=== PATIENT | male | born 1935 | race Caucasian/White ===

== ENCOUNTER 2016-08-14 14:28 | Day surgery (SDC) | payer MEDICARE, OTHER ==
--- NOTE | 2016-08-18 11:51 | Operative Note ---
DATE OF SURGERY: 08/14/2016 PREOPERATIVE DIAGNOSES: 1. Urinary urge incontinence. 2. Nocturia. POSTOPERATIVE DIAGNOSES: 1. Urge urinary incontinence. 2. Nocturia. 3. Enlarge prostate with symptoms. PROCEDURE: Cystoscopy. Surgeon: Yousif Malik M.D. Anesthesia: Local. PROCEDURE: Preop informed consent was obtained. Antibiotics were given. The patient was brought to the [facility] Procedure Room, placed supine with the genitalia prepped and draped sterilely. Flexible cystoscopy was performed. The urethra appeared unremarkable. The prostatic urethra was entered, revealed complete visual obstruction with lateral lobes as well as a [id number] size median lobe which was not intravesical. Advancing into the bladder, the bladder was inspected systematically. There was [id number] trabeculation noted. The ureteral orifices had normal appearance and positioning but otherwise the bladder appeared unremarkable without any evidence of mass, calculus or urothelial abnormality. The scope was also retroflexed and again there was no evidence of an intravesical protrusion of the prostate and the scope was then carefully withdrawn. The procedure was terminated and patient tolerated it quite well. PLAN: Since the patient has not responded to BPH medical therapy already, we discussed surgical options of photovaporization of the prostate versus transurethral resection of the prostate. He would like to move ahead with the green light photovaporization and this will be scheduled to be done as an outpatient at [facility] sometime in the near future. All questions about the procedure were answered including risks, benefits and potential complications including bleeding, incontinence, retention and iatrogenic injury. He understands all the above and wishes to proceed. CC: Ira Hollis M.D. EUN
== END 2016-08-14 15:00 | disposition home or self-care (01) ==
LOC: HOP 14:28
PROVIDERS: ATTEND Urology
DX: N40.0 Benign prostatic hyperplasia without lower urinary tract symptoms (principal)

== ENCOUNTER 2017-08-14 04:29 | Emergency (ER) | payer MEDICARE, OTHER ==
[2017-08-14 05:06] LABS: EOS % 4.8 % (0-6); GRAN % 65.2 % (47-80); HEMATOCRIT 44.5 % (42.0-52.0); HEMOGLOBIN 14.9 gm/dl (14.0-18.0); LYMPH % 21.1 % (16-45); MEAN CORPUSCULAR HEMOGLOBIN 29.8 pg (27-33); MEAN CORPUSCULAR HGB CONC 33.5 g/dl (32-36); MEAN PLATELET VOLUME 10.9 fl (7.4-10.4); MONO % 7.9 % (0-9); PLATELET COUNT 150 K/uL (130-400); WHITE BLOOD COUNT W/O DIFF 5.8 K/uL (4.2-12.2)
[2017-08-14 05:13] LABS: BLOOD UREA NITROGEN 16 mg/dL (8-23); EST GLOMERULAR FILTRATION RATE > 60 mL/min
[2017-08-14 05:15] LABS: GLUCOSE,RANDOM 95 mg/dL (74-109)
--- NOTE | 2017-08-14 06:00 | Emergency Department Record ---
History of Present Illness - General Chief Complaint: Fall Injury Stated Complaint: FALL Time Seen by Provider: 08/14/17 04:36 Source: Patient Mode of Arrival: Ambulatory Limitations: No limitations - History of Present Illness Initial Comments: pt became dizzy in bathroom and fell against wall. he did not injure himself. he conts to be dizzy. Complaint: Fall Onset/Timin -: Hour(s) Fall From: Standing When Fall Occurred: 1 hour [employer]ARB[employer] Fall Witnessed: No Place Fall Occurred: Home Loss of Consciousness: None Prolonged Down Time?: Unclear Symptoms Prior to Fall: Dizziness Associated Symptoms: Lightheaded - Hughes Coma Scale Eye Response: (4) Open spontaneously Motor Response: (6) Obeys commands Verbal Response: (5) Oriented Hughes Total: 15 - Related Data Home Medications Medication Instructions Recorded Confirmed Last Taken Apixaban [Eliquis] 5 mg PO BID 08/14/17 08/14/17 Unknown Terazosin HCl 2 mg PO BID 08/14/17 08/14/17 Unknown Allergies Allergy/AdvReac Type Severity Reaction Status Date / Time Penicillins Allergy Unknown RASH Verified 08/14/17 04:33 Travel Screening - Travel/Exposure Within Last 30 Days Have you traveled within the last 30 days?: No - Travel Symptoms Symptom Screening: None Review of Systems Reviewed: No additional complaints except as noted below Constitutional: Reports: As per HPI. Denies: Chills, Fever, Malaise, Night sweats, Weakness, Weight change Eyes: Reports: As per HPI. Denies: Eye discharge, Eye pain, Photophobia, Vision change ENT: Reports: As per HPI. Denies: Congestion, Dental pain, Ear pain, Epistaxis , Hearing loss, Throat pain Respiratory: Reports: As per HPI. Denies: Cough, Dyspnea, Hemoptysis, Stridor, Wheezes Cardiovascular: Reports: As per HPI, Arrhythmia. Denies: Chest pain, Dyspnea on exertion, Edema, Murmurs, Orthopnea, Palpitations, Paroxysmal nocturnal dyspnea, Rheumatic Fever, Syncope Endocrine: Reports: As per HPI. Denies: Fatigue, Heat or cold intolerance, Polydipsia, Polyuria Gastrointestinal: Reports: As per HPI. Denies: Abdominal pain, Constipation, Diarrhea, Hematemesis, Hematochezia, Melena, Nausea, Vomiting Genitourinary: Reports: As per HPI. Denies: Dysuria, Frequency, Hematuria, Incontinence, Retention, Testicular pain, Testicular mass, Urgency Musculoskeletal: Reports: As per HPI. Denies: Arthralgia, Back pain, Gout, Joint swelling, Myalgia, Neck pain Skin: Reports: As per HPI. Denies: Bruising, Change in color, Change in hair/ nails, Lesions, Pruritus, Rash Neurological: Reports: As per HPI. Denies: Abnormal gait, Confusion, Headache, Numbness, Paresthesias, Seizure, Tingling, Tremors, Vertigo, Weakness Psychiatric: Reports: As per HPI. Denies: Anxiety, Auditory hallucinations, Depression, Homicidal thoughts, Suicidal thoughts, Visual hallucinations Hematological/Lymphatic: Reports: As per HPI. Denies: Anemia, Blood Clots, Easy bleeding, Easy bruising, Swollen glands Past Medical History - SOCIAL HISTORY Smoking Status: Never smoker - RESPIRATORY Hx Respiratory Disorders: Yes Hx Asthma: Yes (many yrs ago) Hx Sleep Apnea: Yes Hx of CPAP: Yes - CARDIOVASCULAR Hx Cardio Disorders: Yes Hx Abnormal EKG: Yes Hx Cardiac Cath: Yes (04/29/15 rt groin) Hx CHF: Yes (angina) Hx Heart Attack: Yes Hx Hypertension: Yes Hx Irregular Heartbeat: Yes (A-fib) Comment:: high cholesterol - NEURO Hx Neuro Disorders: Yes Hx Seizures: No Hx TIA: Yes - GI Hx GI Disorders: Yes Comment:: diarrhea - Hx Genitourinary Disorders: Yes Hx Kidney Stones: Yes Hx Prostate Problems: Yes - ENDOCRINE Hx Endocrine Disorders: No Hx Diabetes: No - MUSCULOSKELETAL Hx Musculoskeletal Disorders: Yes Hx Arthritis: Yes (osteoarthritis rt knee) - PSYCH Hx Psych Problems: No - HEMATOLOGY/ONCOLOGY Hx Hematology/Oncology Disorders: No Family Medical History Any Significant Family History?: Yes Hx Cancer: Father Physical Exam - General General Appearance: Alert, Oriented x3, Cooperative, Mild distress - Head Head exam: Normal inspection - Eye Eye exam: Normal appearance, PERRL, EOMI Pupils: Normal accommodation - ENT ENT exam: Normal exam, Mucous membranes moist, Normal external ear exam, Normal orophraynx, TM's normal bilaterally Ear exam: Normal external inspection. negative: External canal tenderness Nasal Exam: Normal inspection. negative: Discharge, Sinus tenderness Mouth exam: Normal external inspection, Tongue normal Teeth exam: Normal inspection. negative: Dental caries Throat exam: Normal inspection. negative: Tonsillar erythema, Tonsillar exudate - Neck Neck exam: Normal inspection, Full ROM. negative: Tenderness - Respiratory Respiratory exam: Normal lung sounds bilaterally. negative: Respiratory distress - Cardiovascular Cardiovascular Exam: Normal heart sounds, Bradycardia, Irregular rhythm - GI/Abdominal GI/Abdominal exam: Soft, Normal bowel sounds. negative: Tenderness - Rectal Rectal exam: Deferred - exam: Deferred - Extremities Extremities exam: Normal inspection, Full ROM, Normal capillary refill. negative: Tenderness - Back Back exam: Reports: Normal inspection, Full ROM. Denies: Muscle spasm, Rash noted, Tenderness - Neurological Neurological exam: Alert, CN II-XII intact, Normal gait, Oriented X3 - Psychiatric Psychiatric exam: Normal affect, Normal mood - Skin Skin exam: Dry, Intact, Normal color, Warm Course Vital Signs 08/14/17 08/14/17 04:35 05:28 Temperature 97.6 F Pulse Rate [ 64 [employer] ] Pulse Rate [ 56 L Pulse Ox Probe] Respiratory 16 14 Rate Blood Pressure 136/93 [Left Arm] Blood Pressure 146/81 [Right Arm] Pulse Ox 97 95 - Reevaluation(s) Reevaluation #1: 08/14/17 06:00 pt feel better Medical Decision Making - Lab Data Result diagrams: 08/14/17 04:55 08/14/17 04:55 Lab Results 08/14/17 08/14/17 Range/Units 04:55 04:55 WBC 5.8 (4.2-12.2) K/uL RBC 5.00 (4.40-5.70) M/uL Hgb 14.9 (14.0-18.0) gm/dl Hct 44.5 (42.0-52.0) % MCV 89.0 (81-97) fl MCH 29.8 (27-33) pg MCHC 33.5 (32-36) g/dl RDW 15.0 H (11.5-14.5) % Plt Count 150 (130-400) K/uL MPV 10.9 H (7.4-10.4) fl Gran % 65.2 (47-80) % Lymphocytes % 21.1 (16-45) % Monocytes % 7.9 (0-9) % Eosinophils % 4.8 (0-6) % Basophils % 1.0 (0-6) % Sodium 145 (136-145) mmol/L Potassium 3.7 (3.4-4.5) mmol/L Chloride 102 (98-107) mmol/L Carbon Dioxide 28.0 (22-29) mmol/L Anion Gap 15.0 (7-16) BUN 16 (8-23) mg/dL Creatinine 1.0 (0.7-1.2) mg/dL Estimated GFR > 60 mL/min Random Glucose 95 (74-109) mg/dL Calcium 9.1 (8.8-10.2) mg/dL Disposition Disposition: Discharge Clinical Impression: Dizziness Disposition: Home, Self-Care Condition: (1) Good Instructions: Fall Prevention for Older Adults (ED), Dizziness (ED) Additional Instructions: follow up with family doctor. return sooner if worse. Forms: Patient Portal Access Quality - Quality Measures Quality Measures: N/A - Blood Pressure Screening Does Patient Have Any of the Following: No Blood Pressure Classification: Pre-Hypertensive BP Reading Systolic Measurement: 146 Diastolic Measurement: 81 Screening for High Blood Pressure: < Pre-Hypertensive BP, F/U Documented > [ G8950] Pre-Hypertensive Follow-up Interventions: Follow-up with rescreen every year.
[2017-08-14 06:04] LABS: URINE APPEARANCE CLEAR; URINE BILIRUBIN NEGATIVE (NEGATIVE); URINE BLOOD NEGATIVE (NEGATIVE); URINE COLOR YELLOW; URINE GLUCOSE (UA) NEGATIVE (NEGATIVE); URINE KETONE NEGATIVE (NEGATIVE); URINE LEUKOCYTE ESTERASE NEGATIVE (NEGATIVE); URINE NITRITE NEGATIVE (NEGATIVE); URINE PROTEIN NEGATIVE (NEGATIVE); URINE UROBILINOGEN 0.2 E.U./dL (0.20 - 1.00)
[2017-08-14] MEDS: MECLIZINE 25 MG TABLET PO ONE (06:12)
--- NOTE | 2017-08-14 10:33 | CT SCAN REPORT ---
EXAM: CT OF THE BRAIN WITHOUT CONTRAST HISTORY: INJURY. TECHNIQUE: Sequential axial images were obtained from the foramen magnum to the vertex without contrast administration. FINDINGS: The brain volume is normal for the patient's reported age. No large territorial infarct, hemorrhage, mass effect, or midline shift. No extraaxial fluid collection. There is periventricular small vessel ischemia. No extraaxial fluid collection. The orbits, paranasal sinuses, and mastoid air cells are normal. No depressed skull fracture. 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 NO ACUTE INTRACRANIAL ABNORMALITY. JOB NUMBER: [id number] [facility]
== END 2017-08-14 06:20 | disposition home or self-care (01) ==
LOC: ER 04:29
DX: R42 Dizziness and giddiness (principal); I48.91 Unspecified atrial fibrillation; I10 Essential (primary) hypertension; I25.2 Old myocardial infarction; W18.39XA Other fall on same level, initial encounter; Y92.002 Bathroom of unspecified non-institutional (private) residence as the place of occurrence of the external cause
CPT/HCPCS: 70450; 80048; 81003; 85025; 93005; 93010; 99284

== ENCOUNTER 2018-07-12 15:06 | Emergency (ER) | payer MEDICARE, BC ==
--- NOTE | 2018-07-12 15:40 | Emergency Department Record ---
History of Present Illness - General Chief Complaint: Dizziness Stated Complaint: MOUTH DROOPING Time Seen by Provider: 07/12/18 15:29 Source: Patient Mode of Arrival: walker Limitations: No limitations - History of Present Illness Initial Comments: 82 yo male presents last known normal at 10pm on 07/11/18. The patient woke up this morning with a noticeable change in facial expression, increased drooling, and increased unsteadiness of walking with his walker. His states he has had TIA's in the past. The last episode was about 10 years ago. No vision changes, hearing changes, headache. No chest pain or shortness of breath. He has a history of atrial fibrillation on [place] FALK Complaint: Difficulty walking, Other (Slurred speech, drooling, trouble walking) Onset/Timin -: Hour(s) Timing: Awoke with symptoms Description: Difficulty walking History of Same: Yes Severity: Mild Associated Symptoms: Ataxia - Kenna Coma Scale Eye Response: (4) Open spontaneously Motor Response: (6) Obeys commands Verbal Response: (4) Confused conversation Kenna Total: 14 - Symptoms of Stroke Onset of Symptoms Date: 07/12/18 Onset of Symptoms Time: 10:00 Symptom Onset Unknown: Yes - Related Data Allergies Allergy/AdvReac Type Severity Reaction Status Date / Time Penicillins Allergy Unknown RASH Verified 07/12/18 15:35 Travel Screening - Travel/Exposure Within Last 30 Days Have you traveled within the last 30 days?: No - Travel/Exposure Within Last Year Have you traveled outside the [place] in the last year?: No - Additonal Travel Details Have you been exposed to anyone with a communicable illness?: No - Travel Symptoms Symptom Screening: None Review of Systems Constitutional: Reports: Weakness. Denies: Chills, Fever, Malaise Eyes: Denies: Eye discharge, Eye pain, Photophobia, Vision change ENT: Reports: Other (drooling). Denies: Congestion, Throat pain Respiratory: Denies: Cough, Dyspnea Cardiovascular: Denies: Chest pain, Palpitations, Syncope Endocrine: Denies: Fatigue, Polydipsia, Polyuria Gastrointestinal: Denies: Abdominal pain, Diarrhea, Nausea, Vomiting Genitourinary: Denies: Dysuria, Frequency, Hematuria Musculoskeletal: Reports: Arthralgia ("bad knees"). Denies: Back pain Skin: Denies: Bruising, Change in color, Rash Neurological: Reports: Abnormal gait. Denies: Confusion, Headache, Numbness, Paresthesias, Seizure, Tingling, Tremors, Vertigo Psychiatric: Denies: Anxiety Hematological/Lymphatic: Denies: Blood Clots, Easy bleeding, Easy bruising Past Medical History - SOCIAL HISTORY Smoking Status: Never smoker Alcohol Use: None Drug Use: None - RESPIRATORY Hx Respiratory Disorders: Yes Hx Asthma: Yes (many yrs ago) Hx Sleep Apnea: Yes Hx of CPAP: Yes - CARDIOVASCULAR Hx Cardio Disorders: Yes Hx Abnormal EKG: Yes Hx Cardiac Cath: Yes (04/29/15 rt groin) Hx CHF: Yes (angina) Hx Heart Attack: Yes Hx Hypertension: Yes Hx Irregular Heartbeat: Yes (A-fib) Comment:: high cholesterol - NEURO Hx Neuro Disorders: Yes Hx Seizures: No Hx TIA: Yes (2-3) - GI Hx GI Disorders: Yes Comment:: diarrhea - Hx Genitourinary Disorders: Yes Hx Kidney Stones: Yes Hx Prostate Problems: Yes - ENDOCRINE Hx Endocrine Disorders: No Hx Diabetes: No - MUSCULOSKELETAL Hx Musculoskeletal Disorders: Yes Hx Arthritis: Yes (osteoarthritis rt knee) - PSYCH Hx Psych Problems: No - HEMATOLOGY/ONCOLOGY Hx Hematology/Oncology Disorders: No Family Medical History Any Significant Family History?: Yes Hx Cancer: Father Physical Exam - General General Appearance: Alert, Oriented x3, Cooperative, No acute distress Limitations: No limitations - Head Head exam: Atraumatic, Normocephalic, Normal inspection Head exam detail: negative: Abrasion, Contusion, Hematoma, Laceration - Eye Eye exam: Normal appearance, PERRL, EOMI. negative: Conjunctival injection, Nystagmus, Periorbital swelling, Scleral icterus Pupils: Normal accommodation. negative: Irregular - ENT ENT exam: Normal exam, Mucous membranes moist Ear exam: Normal external inspection Nasal Exam: Normal inspection Mouth exam: Normal external inspection - Neck Neck exam: Normal inspection. negative: Tenderness - Respiratory Respiratory exam: Normal lung sounds bilaterally. negative: Respiratory distress, Rhonchi, Stridor, Wheezes - Cardiovascular Cardiovascular Exam: Regular rate, Normal heart sounds. negative: Diastolic murmur, Systolic murmur Peripheral Pulses: 2+: Radial (R), Radial (L) - GI/Abdominal GI/Abdominal exam: Soft. negative: Tenderness - Rectal Rectal exam: Deferred - exam: Deferred - Extremities Extremities exam: Normal inspection. negative: Pedal edema, Tenderness - Back Back exam: Reports: Full ROM - Neurological Neurological exam: Alert, Motor sensory deficit, Oriented X3, Other (Right smile asymmetry, no forehead involvement, No PND, No lower leg drift, slow speech with mild dysarthria). negative: Altered, CN II-XII intact, Normal gait - Psychiatric Psychiatric exam: Normal affect, Normal mood. negative: Agitated, Anxious - Skin Skin exam: Dry, Intact, Normal color, Warm Stroke Assessment - NIH Stroke Scale 1a. Level of Consciousness: (0) Alert 1b. LOC Questions: (0) Answers Correctly 1c. LOC Commands: (0) Performs Tasks Correctly 2. Best Gaze: (0) Normal 3. Visual: (0) No Visual Loss 4. Facial Palsy: (1) Minor Paralysis 5a. Motor Arm Left: (0) No Drift 5b. Motor Arm Right: (0) No Drift 6a. Motor Leg Left: (0) No Drift 6b. Motor Leg Right: (0) No Drift 7. Limb Ataxia: (0) Absent 8. Sensory: (0) Normal 9. Best Language: (0) No Aphasia 10. Dysarthria: (1) Mild/Moderate Dysarthria 11. Extinction/Inattention: (0) No Abnormality NIH Stoke Scale Total: 2 Course Vital Signs 07/12/18 15:26 Temperature 97.6 F Pulse Rate 62 Respiratory 18 Rate Pulse Ox 99 - Reevaluation(s) Reevaluation #1: NIH 2 with facial asymmetry and mild dysarthria 07/12/18 15:49 07/12/18 15:50 The patient is 17 hours since last seen normal 07/12/18 16:06 HCT reviewed. 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 EKG #1: 15:49 Rate: 64 Rhythm: Atrial Fibrillation [place]: Normal Intervals: Qtc 485 ST segments: No acute process Prior: Atrial fibrillation 08/14/17 07/12/18 16:17 The case was discussed with Dr Buttulic She will accept the patient to [facility] for work up for possible stroke Medical Decision Making - Lab Data Result diagrams: 07/12/18 15:41 07/12/18 15:41 Disposition Disposition: Transfer Clinical Impression: Stroke Disposition: Acute Care Hospital Transfer Transfer To: [facility] Reason For Transfer: Stroke Accepting Physician: Tana Time Discussed w/Accepting Physician: 16:17 Condition: (1) Good Forms: Patient Portal Access Time of Disposition: 16:17 Quality - Quality Measures Quality Measures: N/A - Blood Pressure Screening Does Patient Have Any of the Following: Active Dx of HTN Blood Pressure Classification: Pre-Hypertensive BP Reading Systolic Measurement: 136 Diastolic Measurement: 69 Screening for High Blood Pressure: Patient Exclusion, Hx of HTN [G9744]
[2018-07-12 15:44] LABS: BASO % 0.5 % (0-6); EOS % 4.7 % (0-6); GRAN % 61.3 % (47-80); HEMATOCRIT 44.1 % (42.0-52.0); HEMOGLOBIN 14.9 gm/dl (14.0-18.0); LYMPH % 24.2 % (16-45); MEAN CORPUSCULAR HEMOGLOBIN 30.4 pg (27-33); MEAN CORPUSCULAR HGB CONC 33.8 g/dl (32-36); MONO % 9.3 % (0-9); PLATELET COUNT 162 K/uL (130-400); WHITE BLOOD COUNT W/O DIFF 5.5 K/uL (4.2-12.2)
[2018-07-12 15:55] LABS: INR 1.1; PARTIAL THROMBOPLASTIN TIME 31.1 SECONDS (24.5-39.1); PROTHROMBIN TIME (PATIENT) 11.4 SECONDS (9.5-12.1)
[2018-07-12 15:57] LABS: BLOOD UREA NITROGEN 13 mg/dL (8-23); EST GLOMERULAR FILTRATION RATE > 60 mL/min
[2018-07-12 15:58] LABS: TOTAL PROTEIN 7.5 g/dL (6.6-8.7)
[2018-07-12 16:00] LABS: GLUCOSE,RANDOM 105 mg/dL (74-109)
[2018-07-12 16:03] LABS: ALB/GLOB RATIO 1.2 (1.1-1.8); ALBUMIN 4.1 g/dL (4.0-5.0); ALKALINE PHOSPHATASE 71 U/L (40-129); ALT/SGPT 22 U/L (<41); AST/SGOT 20 U/L (10.0-50.0)
[2018-07-12 18:08] LABS: URINE APPEARANCE CLEAR; URINE BILIRUBIN NEGATIVE (NEGATIVE); URINE BLOOD NEGATIVE (NEGATIVE); URINE COLOR YELLOW; URINE GLUCOSE (UA) NEGATIVE (NEGATIVE); URINE KETONE NEGATIVE (NEGATIVE); URINE LEUKOCYTE ESTERASE NEGATIVE (NEGATIVE); URINE NITRITE NEGATIVE (NEGATIVE); URINE PROTEIN NEGATIVE (NEGATIVE)
== END 2018-07-12 19:20 | disposition short-term general hospital (02) ==
LOC: ER 15:06
DX: I63.9 Cerebral infarction, unspecified (principal); R47.1 Dysarthria and anarthria; R26.2 Difficulty in walking, not elsewhere classified; R29.702 NIHSS score 2; I48.91 Unspecified atrial fibrillation; I10 Essential (primary) hypertension; I25.2 Old myocardial infarction; I50.9 Heart failure, unspecified; Z86.73 Personal history of transient ischemic attack (TIA), and cerebral infarction without residual deficits; Z79.01 Long term (current) use of anticoagulants
CPT/HCPCS: 70450; 80053; 81003; 84484; 85025; 85610; 85730; 93005; 93010; 99285

== ENCOUNTER 2018-07-15 13:45 | Inpatient (IN) | payer MEDICARE, BC ==
--- NOTE | 2018-07-15 15:38 | Rehab Evaluation ---
Patient Information - Patient Information Diagnosis: Deconditioning R CVA Ordered Treatment: PT Evaluate and Treat Status: Initial Evaluation Past Medical/Surgical Hx: PAST MEDICAL/SURGICAL HISTORY Past Surgical History cardiac stent elbow; R knee replacement; Prostate surgery PMH - Respiratory Hx Respiratory Disorders Yes Hx Asthma Yes: many yrs ago Hx Sleep Apnea Yes Hx of CPAP Yes PMH - Cardiovascular Hx Cardiovascular Disorders Yes Hx Abnormal EKG Yes Hx Cardiac Catheterization Yes: 04/29/15 rt groin Hx Congestive Heart Failure Yes: angina Hx Heart Attack Yes Hx Hypertension Yes Hx Irregular Heartbeat Yes: A-fib Hx Coronary Artery Disease Yes Hx Coronary Stent Yes: 2012 Hx Transient Ischemic Attacks Yes: 2-3 (TIA) Comment: high cholesterol PMH - Neuro Hx Neurological Disorders Yes Hx Cerebrovascular Accident Yes: 07/12/2018 Hx Seizures No Hx Transient Ischemic Attacks Yes: 2-3 (TIA) PMH - GI Hx Gastrointestinal Disorders Yes Comment: diarrhea PMH - Hx Genitourinary Disorders Yes Hx Kidney Stones Yes Hx Prostate Problems Yes PMH - Endocrine Hx Endocrine Disorders No Hx Diabetes No PMH - Musculoskeletal Hx Musculoskeletal Disorders Yes Hx Arthritis Yes: osteoarthritis rt knee PMH - Psych Hx Psychiatric Problems No PMH - Hematology/Oncology Hx Hematology/Oncology No Disorders Premorbid Status: Detail (Patient was ambulatory without device prior to CVA. Patient was completing yard work including mowing with a riding lawnmower and assisting with washing dishes.) Social History: Detail (The patient lives with spouse in a mobile home with 3 steps and one railing on the right side going up at enterance from the garage. The bathroom is equipped with a shower stall and elevated toilet. No grab bars are present in bathroom. 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 The patient states he has had L lateral knee pain since his TKA 2 years ago.) Objective Data - Mental Status Patient Orientation: Oriented x3 (The patient was able to follow simple commands but at times required visual and tactile cues to complete. The patient was able to verbalize history but did have difficulty with word finding. Facial drooping was present on the R.) - ROM Within normal limits (The patient's LE AROM is WFL. Knee flexion is to 105 degrees on the R and 0 degrees of extension. L knee flexion is 108 degrees and 0 degrees of extension. Refer to OT note for UE AROM) - Strength/Tone Not within normal limits (R LE isolated control is present. Hip musculature is generally 4/5 except for hip flexors which were 4-/5., knee flexors 4-/5, knee extensors 4/5, ankle musculature 4-/5. L LE strength was generally 4+ to 5/5. Refer to OT notes for UE strength.) - Coordination Deficit (Decreased speed of movement with R LE was noted with FRED's toe tapping. ) - Bed Mobility Needs Assist (Testing is deferred.) - Transfers Independent (The patient was independent/supervison with sit to and from stand from recliner with verbal cues to reach back to chair when sitting.) - Balance Balance Sitting: Good Balance Standing: Fair (The patient required support of walker. Patient's balance was not tested using an objective balance test.) - Gait Detail (The patient ambulated with 2 wheeled walker with CG for safety a distance of 75 feet x 1. The patient's gait pattern was characterized by occasional foot drag on the R and forward trunk lean.) - Special Tests Yes (Tone: no increase in R LE tone was noted in sitting (0 on Terese scale) Refer to OT note for R UE tone.) Therapy Assessment - Therapy Assessment Detail (The patient exhibits R LE weakness especially distal musculature, decrease LE coordination. The patient ambulates with 2 wheeled walker and minimal gait deviations. The patient's was present for PT evaluation. Feel the patient is a good rehab candidate requiring OT, PT and Speech to return to near previous functional level. Due to the patient's stable condition and few personel factors PT complexity is rated as low.) Problem List - Problem List Physical Therapy Problem List: Detail (1) Bilateral knee pain 2) Decreased R LE strength and decreased coordination 3) Impaired ambulation secondary to CVA 4) Decreased balance in standing) Goals - Goals Physical Therapy Goals: 1) Assess the patient's bed mobilty and balance using an objective balance scale. 2) The patient will be independent with all transfers. 3) The patient will be independent with bed mobility. 4) The patient will be independent and safe with ambulation with appropriate assistive device community distances. 5) The patient will ambulate on stairs with supervision for safety. Prognosis - Prognosis Good Plan - Plan Physical Therapy Plan: 1-2 times a day M-F for gait training, LE strengthening exercises, balance and coordination exercises, transfer training and bed mobility.
--- NOTE | 2018-07-15 16:52 | History & Physical ---
History of Present Illness - Date Date of Service for History & Physical: 07/16/18 - History of Present Illness Admitting Diagnosis: Deconditioning r/t CVA History of Present Illness: 82 year old male patient presented to [facility] for the swingbed program. Patient was admitted to [facility] 07/12/18 for a CVA. Patient was noted to suffer from expressive aphasia, right-sided facial droop and drooling, and noted increased gait instability. Patient has had TIAs in the past, with the last episode 10 years ago and no resulting neuro deficits. CT head showed a new left frontal lucunar infarct. ECHO showed LVEF of 55-60T. MRI findings of acute lacunar infarct involving the left frontal lobe and chronic small vessel ischemic changes. Neurology conult recommended continued statin therapy for secondary prevention and follow-up with Dr. Gasca (Neurology) in 90 days. Past medical history includes: HTN, chronic A-fib (Eliquis), BPH, dementia, hyperlipidemia Labs 07/15/18: Hgb 14.4 Platelets 129 CR 1.05 K 3.9 PCP: Dr. Armijo 07/15/18: Patient sitting up in chair with at bedside. Patient oriented to self, place, and situation, disoriented to year. Patient has significant right- sided weakness with right-sided facial droop as well. Patient reports no pain at this time. General - Cognitive Patterns Speech: Slurred Orientation: Person, Place Orientation Comment: 1980 - Communication Preferred Language?: [place] Level of Education: Technical/[employer] Comprehension Ability: Impairment Able to Read: Yes Able to Write: Yes (R handed.) Select best description of speech pattern: Unclear Speech Ability to express ideas and wants: Usually Understood Understanding verbal content: Understands - Mood and Behavior Patterns Attitude: Cooperative Motor Activity: Calm - Psychosocial Well-Being Usual Living Arrangement: Spouse - Physical Functioning Activity Level: Up as tolerated, Up with assist x1 Turning: With partial assist ROM Ability: Within Normal Limits Assistive Devices: 2 Wheel Walker Ambulation Ability: Needs Assist Bed Mobility: Needs Assist Transfer Ability: Needs Assist Bathing Ability: Needs Assist Personal Hygiene: Needs Assist Dressing Ability: Needs Assist Eating (Feeding) Ability: Needs Assist Toileting Ability: Needs Assist Administer Own Medication: Independent - Continence Bowel Pattern: Normal for Patient Bladder Pattern: Normal - Dental Status Unable to examine: No Broken or loosely fitting full or partial dentures: No No natural teeth or tooth fragment(s) (edentulous): No Abnormal mouth tissue (ulcers, masses, oral lesions, etc.): No Obvious or likely cavity or broken natural teeth: No Inflamed or bleeding gums or loose natural teeth: No Mouth/facial pain, discomfort or difficulty chewing: No - Nutrition Screening Poor oral intake > 1 week: No Unplanned weight loss in specified time frame: No Nutrition Support via tube feedings or parenteral nutrition: No Pressure Ulcer: No Significantly underweight define as BMI <18.5 kg/m2: No Albumin <2.5mg/dL: No Persistent nausea/vomiting/diarrhea >3 days: No Difficulty chewing/swallowing/mouth sores: No Admitting Diagnosis: Yes Nutrition Risk Score: Low Risk Review of Systems Reviewed: No additional complaints except as noted below Constitutional: Reports: As per HPI, Weakness. Denies: Chills, Fever, Malaise, Night sweats, Weight change Eyes: Reports: As per HPI. Denies: Eye discharge, Eye pain, Photophobia, Vision change ENT: Reports: As per HPI. Denies: Congestion, Dental pain, Ear pain, Epistaxis , Hearing loss, Throat pain Respiratory: Reports: As per HPI. Denies: Cough, Dyspnea, Hemoptysis, Stridor, Wheezes Cardiovascular: Reports: As per HPI. Denies: Arrhythmia, Chest pain, Dyspnea on exertion, Edema, Murmurs, Orthopnea, Palpitations, Paroxysmal nocturnal dyspnea, Rheumatic Fever, Syncope Endocrine: Reports: As per HPI. Denies: Fatigue, Heat or cold intolerance, Polydipsia, Polyuria Gastrointestinal: Reports: As per HPI. Denies: Abdominal pain, Constipation, Diarrhea, Hematemesis, Hematochezia, Melena, Nausea, Vomiting Genitourinary: Reports: As per HPI. Denies: Dysuria, Frequency, Hematuria, Incontinence, Retention, Testicular pain, Testicular mass, Urgency Musculoskeletal: Reports: As per HPI. Denies: Arthralgia, Back pain, Gout, Joint swelling, Myalgia, Neck pain Skin: Reports: As per HPI. Denies: Bruising, Change in color, Change in hair/ nails, Lesions, Pruritus, Rash Neurological: Reports: As per HPI, Abnormal gait, Confusion, Weakness. Denies: Headache, Numbness, Paresthesias, Seizure, Tingling, Tremors, Vertigo Psychiatric: Reports: As per HPI. Denies: Anxiety, Auditory hallucinations, Depression, Homicidal thoughts, Suicidal thoughts, Visual hallucinations Hematological/Lymphatic: Reports: As per HPI. Denies: Anemia, Blood Clots, Easy bleeding, Easy bruising, Swollen glands Past Medical History - SOCIAL HISTORY Smoking Status: Never smoker - SURGICAL HISTORY Past Surgical History: cardiac stent. elbow; R knee replacement; Prostate surgery - RESPIRATORY Hx Respiratory Disorders: Yes Hx Asthma: Yes (many yrs ago) Hx Sleep Apnea: Yes Hx of CPAP: Yes - CARDIOVASCULAR Hx Cardio Disorders: Yes Hx Abnormal EKG: Yes Hx Cardiac Cath: Yes (04/29/15 rt groin) Hx CHF: Yes (angina) Hx Heart Attack: Yes Hx Hypertension: Yes Hx Irregular Heartbeat: Yes (A-fib) Comment:: high cholesterol - NEURO Hx Neuro Disorders: Yes Hx CVA: Yes (07/12/2018) Hx Seizures: No Hx TIA: Yes (2-3) - GI Hx GI Disorders: Yes Comment:: diarrhea - Hx Genitourinary Disorders: Yes Hx Kidney Stones: Yes Hx Prostate Problems: Yes - ENDOCRINE Hx Endocrine Disorders: No Hx Diabetes: No - MUSCULOSKELETAL Hx Musculoskeletal Disorders: Yes Hx Arthritis: Yes (osteoarthritis rt knee) - PSYCH Hx Psych Problems: No - HEMATOLOGY/ONCOLOGY Hx Hematology/Oncology Disorders: No Family Medical History Any Significant Family History?: Yes Hx Cancer: Father H&P Meds/Allergies - Allergies Allergies: Allergies Allergy/AdvReac Type Severity Reaction Status Date / Time Penicillins Allergy Unknown RASH Verified 07/12/18 15:35 - Home Medications Home Medications Medication Instructions Recorded Confirmed Last Taken Ascorbic Acid 500 mg PO DAILY 07/15/18 07/15/18 Unknown Aspirin [Aspirin EC] 81 mg PO DAILY 07/15/18 07/15/18 Unknown Donepezil HCl 10 mg PO QHS 07/15/18 07/15/18 Unknown - Active Medications Active Medications: Current Medications Apixaban (Eliquis) 5 mg PO BID [facility] Ascorbic Acid (Vitamin C) 500 mg PO DAILY [facility] Aspirin (Ecotrin (Ec)) 81 mg PO DAILY [facility] Donepezil HCl (Aricept) 10 mg PO QHS [facility] Simvastatin (Zocor) 40 mg PO DAILY [facility] Terazosin HCl (Hytrin) 2 mg PO BID [facility] Vitamin D (Vitamin D3) 1,000 unit PO DAILY GLORIA Physical Exam - General General Appearance: Alert, No acute distress Limitations: Altered mental status - Head Head exam: Atraumatic Image of Face/Head: 1 - right-sided facial droop noted - Eye Eye exam: Normal appearance - ENT ENT exam: Normal exam, Mucous membranes moist Mouth exam: Drooling (from right side) - Respiratory Respiratory exam: Normal lung sounds bilaterally - Cardiovascular Cardiovascular Exam: Normal rhythm, Normal heart sounds Peripheral Pulses: 2+: Radial (R), Radial (L), Dorsalis Pedis (R), Dorsalis Pedis (L) - GI/Abdominal GI/Abdominal exam: Soft, Normal bowel sounds - Rectal Rectal exam: Deferred - exam: Deferred - Extremities Extremities exam: Normal inspection - Neurological Neurological exam: Abnormal gait - Psychiatric Psychiatric exam: Normal affect, Normal mood - Skin Skin exam: Dry, Warm Discharge Potential - Discharge Needs Community Services Used Prior to Admission: None Patient Discharge Plan Description: Return Home Community Services Needed at Discharge: None Plan - Swing Bed Certification Initial Certification Due: 07/15/18 14 Day Re-Cert Due: 07/29/18 44 Day Re-Cert Due: 08/28/18 74 Day Re-Cert Due: 09/27/18 - Detailed Diagnosis and Plan (1) Physical deconditioning Current Visit: Yes Status: Acute Base Code: R53.81 - OTHER MALAISE Comment : 07/15/18: Recent CVA 07/12/18 -CT head shows new left frontal lacunar infart -Resulting right-sided weakness with facial droop -PT/OT to evaluate and treat (2) Expressive aphasia Current Visit: Yes Status: Acute Base Code: R47.01 - APHASIA Comment: 07/15: CT head shows new left frontal lacunar infart 07/12 -Speech to evaluate (3) Chronic a-fib Current Visit: Yes Status: Acute Base Code: I48.2 - CHRONIC ATRIAL FIBRILLATION Comment: 07/15/18: -Continue Eliquis 5mg BID (4) Dementia Current Visit: Yes Status: Acute Base Code: F03.90 - UNSPECIFIED DEMENTIA WITHOUT BEHAVIORAL DISTURBANCE Comment: 07/15/18: -Patient has demetia per baseline, assisting at bedside -Continue Donepezil 10mg PO QHS (5) DVT prophylaxis Current Visit: Yes Status: Acute Base Code: [id number] - Comment: 07/15/18: -High risk due to hospitalization and recent CVA -Continue Eliquis 5mg BID -Encourage ambulation with PT/OT (6) Full code status Current Visit: Yes Status: Acute Base Code: Z78.9 - OTHER SPECIFIED HEALTH STATUS Comment: 07/15/18: -Patient is a full code this admission
[2018-07-15] MEDS: DONEPEZIL HCL 5 MG TABLET PO SCH (21:51)
[2018-07-15] MEDS: APIXABAN 5MG TABLET PO SCH (21:51)
--- NOTE | 2018-07-16 08:23 | Rehab Evaluation ---
Patient Information - Patient Information Diagnosis: Deconditioning r/t CVA Ordered Treatment: OT Evaluate and Treat Status: Initial Evaluation Surgery: No Past Medical/Surgical Hx: PAST MEDICAL/SURGICAL HISTORY Past Surgical History cardiac stent elbow; R knee replacement; Prostate surgery PMH - Respiratory Hx Respiratory Disorders Yes Hx Asthma Yes: many yrs ago Hx Sleep Apnea Yes Hx of CPAP Yes PMH - Cardiovascular Hx Cardiovascular Disorders Yes Hx Abnormal EKG Yes Hx Cardiac Catheterization Yes: 04/29/15 rt groin Hx Congestive Heart Failure Yes: angina Hx Heart Attack Yes Hx Hypertension Yes Hx Irregular Heartbeat Yes: A-fib Hx Coronary Artery Disease Yes Hx Coronary Stent Yes: 2012 Hx Transient Ischemic Attacks Yes: 2-3 (TIA) Comment: high cholesterol PMH - Neuro Hx Neurological Disorders Yes Hx Cerebrovascular Accident Yes: 07/12/2018 Hx Seizures No Hx Transient Ischemic Attacks Yes: 2-3 (TIA) PMH - GI Hx Gastrointestinal Disorders Yes Comment: diarrhea PMH - Hx Genitourinary Disorders Yes Hx Kidney Stones Yes Hx Prostate Problems Yes PMH - Endocrine Hx Endocrine Disorders No Hx Diabetes No PMH - Musculoskeletal Hx Musculoskeletal Disorders Yes Hx Arthritis Yes: osteoarthritis rt knee PMH - Psych Hx Psychiatric Problems No PMH - Hematology/Oncology Hx Hematology/Oncology No Disorders Premorbid Status: Detail (Patient was ambulatory without device prior to CVA. Patient was completing yard work including mowing with a riding lawnmower and assisting with washing dishes and some house work. Spouse is responsible for meal prep and laundry tasks. Pt was Ind with driving.) Social History: Detail (The patient lives with spouse in a mobile home with 4 steps and one railing on the right side going up at entrance from the garage. The bathroom is equipped with a walk in shower stall and standard height toilet. He usually stands to shower. No grab bars are present in bathroom. 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, cane and railroad track mechanic.) Precautions: Dawson, Fall - Time With Patient Total Time Spent With Patient (Min): 45 Treatment Procedures: Detail (OT eval low complexity) Subjective Information - Subjective Information Per Patient Objective Data - Pain Pain Present: No - Mental Status Patient Orientation: Person (Pt oriented to self, birthday and location. He stated age as "73", month as "July", and he was unsure of the year. Pt was able to follow all directions and problem solve approriately during evaluation. Pt demonstrates mild to moderate expressive aphasia (see Speech evaluation for specific details).), Place - Visual Perception Appears within normal limits for therapeutic activities (Not formally tested, no specific visual field deficits observed during evaluation.) - ROM Within normal limits (Timmy UE AROM grossly WNL.) - Strength/Tone Not within normal limits (Right UE strength 4/5, left UE strength 4+/5.) - Coordination Deficit (Left UE WNL, Right UE coordination slowed with ADL tasks. Will formally assess.) - Transfers Needs Assist (SBA for sit to stand from recliner chair, toilet and commode heights.) - Balance Balance Sitting: Good Balance Standing: Fair (Pt mildly unsteady with static standing at sink during ADL task. No loss of balance occured.) - Sensation Deficit (Mild proprioceptive deficit noted in right UE during ADL task. Will formally assess.) - Gait Detail (Pt ambulating in room with 2 wheeled walker and SBA.) - ADL's/IADL's Detail (Pt able to complete doffing button down shirt, t-shirt, hospital pants and slipper socks Indly but with slowed use of right UE. He completed light sponge bath at sink in standing and sitting with SBA. Pt able to don t-shirt, hospital pants, slippers and button down shirt with extra time and mild difficulty due to decreased coordination in right hand. He required max assist to button left sleeve and had difficulty tying pants. Pt completed partial shaving with assist to open shaving cream and he used left hand as he was unable to apply enough pressure to face with right hand. Pt required assist to cut food for breakfast but was then able to eat Indly.) Therapy Assessment - Therapy Assessment Detail (Pt presents with decreased right UE function/coordination which is impairing his Ind with self cares. He demonstrates decreased endurance and balance needed for safe and Ind ADLs/IADLs as well as expressive aphasia.) Problem List - Problem List Physical Therapy Problem List: Detail (1) Bilateral knee pain 2) Decreased R LE strength and decreased coordination 3) Impaired ambulation secondary to CVA 4) Decreased balance in standing) Occupational Therapy Problem List: Detail (1. Decreased right UE strength, coordination and sensation needed for safe and Ind ADLs/IADLs. 2. Decreased Ind with showering. 3. Decreased Ind with grooming/hygiene. 4. Decreased Ind with total body dressing. 5. Decreased endurance needed for functional Ind.) Goals - Goals Physical Therapy Goals: 1) Assess the patient's bed mobilty and balance using an objective balance scale. 2) The patient will be independent with all transfers. 3) The patient will be independent with bed mobility. 4) The patient will be independent and safe with ambulation with appropriate assistive device community distances. 5) The patient will ambulate on stairs with supervision for safety. Occupational Therapy Goals: 1. Pt will demonstrated functional use of right UE for all ADL/IADL tasks. 2. Pt will be Ind with showering in standing or sitting. 3. Pt will be Ind with total body dressing. 4. Pt will demonstrate improve endurance needed for Ind self cares. 5. Pt will be Ind with grooming/ hygiene tasks. Prognosis - Prognosis Good Plan - Plan Physical Therapy Plan: 1-2 times a day M-F for gait training, LE strengthening exercises, balance and coordination exercises, transfer training and bed mobility. Occupational Therapy Plan: OT 2-4 times per week to address goals as above. Thank you for this referral.
[2018-07-16] MEDS: TERAZOSIN HCL 1 MG CAPSULE PO SCH ×2 (09:45→21:43)
[2018-07-16] MEDS: ASPIRIN 81 MG TABEC PO SCH (09:45)
[2018-07-16] MEDS: APIXABAN 5MG TABLET PO SCH ×2 (09:45→21:43)
[2018-07-16] MEDS: SIMVASTATIN 20 MG TABLET PO SCH (09:45)
[2018-07-16] MEDS: ASCORBIC ACID 500 MG TAB PO SCH (09:45)
[2018-07-16] MEDS: CHOLECALCIFEROL 1,000 UNIT TABLET PO SCH (09:45)
--- NOTE | 2018-07-16 11:36 | Swing Bed Certification/Recert ---
Initial Certification Due: 07/15/18 14 Day Re-Cert Due: 07/29/18 44 Day Re-Cert Due: 08/28/18 74 Day Re-Cert Due: 09/27/18 CERTIFICATION 3 CERTIFICATION OF PATIENT ADMISSION Required at time of admission. Due: 07/15/18 I certify that SNF services are required to be given on an inpatient basis because of the above named patient's need for shelter care on a continuing basis for the condition(s) for which he/she was receiving inpatient hospital services prior to his/her transfer to the SNF. The patient's current needs for skilled care includes: [PT, OT, speech therapy, assistance with ADL's] Radha Hampton, N.P. 07/16/18
--- NOTE | 2018-07-16 14:29 | Speech Therapy Evaluation ---
Speech Therapy Evaluation - Patient Concerns List Patient Concerns: is concerned regarding change in communication, cognition and ADL completion. - Living & Support Living Situation/Support System: is very supportive however she does not have much additional support for herself or Jack. - Hearing Evaluation Hearing: Pass Hearing Comment: Requires increased volume in complex environments. - Vision Evaluation Vision: Glassess - Expressive Language (Area of Concern) Expressive Language: Phrase Paragraph Cues Needed: Time Expressive Language Comment: Spontaneous communication is reduced. Requires increased time for response to questions, simple questions. - Receptive Language (Area of Concern Receptive Language: Complex Receptive Language Comment: Patient has difficulty responding to complex commands. Improves with information broken down into single steps. - Written Expression Written Expression Comment: Did not test. - Cognition Orientation: Person Attention: Divided, Complex Executive Functions: Planning, Problem Solving Cognition Comment: Patient demonstrates complex cognitive deficits including what appears to be a fluctuating response to stimuli and functional communication attempts which complicate his ability to participate in structured and unstructured tasks. Patient benefits from basic language, single step directions and assistance from caregivers for complex needs. Patient is repsonsive to intervention techniques which demonstrates fair to good rehabilitation potential for aspects of communication, cognition and motor speech deficits. - Voice & Motor Speech Voice: Harsh, Breath Support Dysarthria: Moderate Voice & Motor Speech Comment: Articulation deteriorates as communication complexity increases. Poor breath support and limited stimulibility for improvement. Goals for Treatment - Goals Goals: 1. Patient will improve cognition, response to two step commands for ADL completion. 80% of attempts with moderate cues. 2. Improve spontaneous communication for simple tasks to improve expression of wants/needs. 75% Of attempts with moderate cues. 3. Improve breath support for improved pacing for dyspharthric speech. 3-4 word phrases independently at 95% accuracy. Plan for Treatment - Plan Plan for Treatment: Patient to be seen by ST 2x a week to address the above concerns in order to improve safety, communication and ADL completion for the duration of his swing bed stay or re-assessed if beyond 3 weeks.
--- NOTE | 2018-07-16 16:58 | Physical Therapy Tx Note ---
Physical Therapy Tx Note - Treatment Note Tolerated: Good Total Time Spent With Patient: 25 Physical Therapy Tx Note: Detail (The patient was in bed when PT arrived. The patient was independent with supine to sit. The patient ambulated with front wheeled walker a distance of 150 feet x 1 with supervison for safety and verbal cues to look up. The patient also ambulated on carpet in [facility]. The patient's balance was tested using the Tinetti Assessment Tool which is in the high risk for falls category. The patient had increased posteral sway with perturbations to the R and posterior. The patient completed the following LE exercises heel and toe raises seated, R isolated hip abduction, adduction, hamstring curls with red band isolated. Sensation was also tested and was decreased R ankle and foot. Proprioception to toe position was intact on the R LE. The patient was left in chair with present.) Physical Therapy Problem List: Detail (1) Bilateral knee pain 2) Decreased R LE strength and decreased coordination 3) Impaired ambulation secondary to CVA 4) Decreased balance in standing) Physical Therapy Goals: 1) Assess the patient's bed mobilty and balance using an objective balance scale. (Goal Met). 2) The patient will be independent with all transfers. 3) The patient will be independent with bed mobility (Goal Met). 4) The patient will be independent and safe with ambulation with appropriate assistive device community distances. 5) The patient will ambulate on stairs with supervision for safety. Physical Therapy Plan: 1-2 times a day M-F for gait training, LE strengthening exercises, balance and coordination exercises, transfer training and bed mobility.
[2018-07-16] MEDS: DONEPEZIL HCL 5 MG TABLET PO SCH (21:43)
[2018-07-17] MEDS: APIXABAN 5MG TABLET PO SCH ×2 (10:37→21:02)
[2018-07-17] MEDS: TERAZOSIN HCL 1 MG CAPSULE PO SCH ×2 (10:37→21:02)
[2018-07-17] MEDS: ASPIRIN 81 MG TABEC PO SCH (10:37)
[2018-07-17] MEDS: ASCORBIC ACID 500 MG TAB PO SCH (10:38)
[2018-07-17] MEDS: CHOLECALCIFEROL 1,000 UNIT TABLET PO SCH (10:38)
[2018-07-17] MEDS: SIMVASTATIN 20 MG TABLET PO SCH (10:38)
--- NOTE | 2018-07-17 13:47 | Physical Therapy Tx Note ---
Physical Therapy Tx Note - Treatment Note Tolerated: Good Total Time Spent With Patient: 30 Physical Therapy Tx Note: Detail (Patient states feeling good today. Patient was seated in chair upon PIT CRANE OPERATOR arrival. Patient transferred sit to and from stand CGA x1. Patient ambulated 434 feet with wheeled walker CGA x1. Patient performed the following exercises x10 reps each seated in chair: heel raises, toe raises, marching, hip abduction with red theraband, adductor squeezes, LAQ, hamstring curls with red theraband, glut squeezes. Patient tolerated treatment well. Patient displays decreased strength and endurance in right LE with hip abduction with band, toe raises, heel raises, and adductor squeezes. Patient reports feeling good after treatment. Patient was left seated in chair with call light within reach.) Physical Therapy Problem List: Detail (1) Bilateral knee pain 2) Decreased R LE strength and decreased coordination 3) Impaired ambulation secondary to CVA 4) Decreased balance in standing) Physical Therapy Goals: 1) Assess the patient's bed mobilty and balance using an objective balance scale. (Goal Met). 2) The patient will be independent with all transfers. 3) The patient will be independent with bed mobility (Goal Met). 4) The patient will be independent and safe with ambulation with appropriate assistive device community distances. 5) The patient will ambulate on stairs with supervision for safety. Prognosis: Good Physical Therapy Plan: 1-2 times a day M-F for gait training, LE strengthening exercises, balance and coordination exercises, transfer training and bed mobility.
[2018-07-17] MEDS: GENTAMICIN SULFATE 0.3% OPTH 5 ML BTL OPTH PRN (16:12)
--- NOTE | 2018-07-17 19:02 | Physical Therapy Tx Note ---
Physical Therapy Tx Note - Treatment Note Tolerated: Good Total Time Spent With Patient: 35 Physical Therapy Tx Note: Detail (Pt sitting up in recliner upon arrival; awake , alert, cooperative for therapy. Performed sit<>stand transfers x 4 with CGA/ SBA. Performed balance exercises as follows: Normal stance, stride stances with eyes open/closed/head movements; reaching with UEs; marching in place, turning 360 degrees; all with CGA for safety. Required frequent rest periods in sitting. Ambulated w/front wheeled walker from bedside chair to chapel and back to bedside chair (about 225 feet) w/CGA/SBA. Fatigued and mildly short of breath after walking. Left up in chair with chair alarm activated, bedside table and call light in reach; present in room. Nrsg notified.) Physical Therapy Problem List: Detail (1) Bilateral knee pain 2) Decreased R LE strength and decreased coordination 3) Impaired ambulation secondary to CVA 4) Decreased balance in standing) Physical Therapy Goals: 1) Assess the patient's bed mobilty and balance using an objective balance scale. (Goal Met). 2) The patient will be independent with all transfers. 3) The patient will be independent with bed mobility (Goal Met). 4) The patient will be independent and safe with ambulation with appropriate assistive device community distances. 5) The patient will ambulate on stairs with supervision for safety. Physical Therapy Plan: 1-2 times a day M-F for gait training, LE strengthening exercises, balance and coordination exercises, transfer training and bed mobility.
[2018-07-17] MEDS: DONEPEZIL HCL 5 MG TABLET PO SCH (21:05)
--- NOTE | 2018-07-18 11:46 | Physical Therapy Tx Note ---
Physical Therapy Tx Note - Treatment Note Tolerated: Good Total Time Spent With Patient: 25 Physical Therapy Tx Note: Detail ( The patient was up in chair with when PT arrived. The patient ambulated with front wheeled walker a distance of 240 feet x 1, with verbal cues to watch out for objects on the R. The patient was taken to Rehab department. Patient completed the following balance exercises in parallel bars: stepping over objects (required maximal verbal cues), standing with varying bases of support, weight shifting side to side to find the center, walking sideways and backwards. The patient appears to have right side visual deficits and possible right neglect. Patient had difficulty stepping over obstacles. 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 (Goal Met). 2) The patient will be independent with all transfers. 3) The patient will be independent with bed mobility (Goal Met). 4) The patient will be independent and safe with ambulation with appropriate assistive device community distances. 5) The patient will ambulate on stairs with supervision for safety. Physical Therapy Plan: 1-2 times a day M-F for gait training, LE strengthening exercises, balance and coordination exercises, transfer training and bed mobility.
[2018-07-18] MEDS: CHOLECALCIFEROL 1,000 UNIT TABLET PO SCH (11:55)
[2018-07-18] MEDS: ASCORBIC ACID 500 MG TAB PO SCH (11:55)
[2018-07-18] MEDS: TERAZOSIN HCL 1 MG CAPSULE PO SCH ×2 (11:55→22:06)
[2018-07-18] MEDS: SIMVASTATIN 20 MG TABLET PO SCH (11:56)
[2018-07-18] MEDS: APIXABAN 5MG TABLET PO SCH ×2 (11:56→22:06)
[2018-07-18] MEDS: ASPIRIN 81 MG TABEC PO SCH (11:56)
--- NOTE | 2018-07-18 12:43 | Occupational Therapy Tx Note ---
Occupational Therapy Tx Note - Treatment Note Tolerated: Good Total Time Spent With Patient: 35 Occupational Therapy Treatment Note: Detail (Patient seen in rehab gym following therapy with PT. He was formally assessed for gross grasp and pinch strength, coordination, proprioception, and visual perception. Mass grasp: ( right) 19,8,7 #'s, (left) 20,26,19 #'s; Lateral pinch (right) 7.5 #'s, (left) 10 #'s; 3-jaw chase pinch: (right) 3.5, (left) 6 #'s; tip to tip pinch: (right) 2, (left) 5 #'s; 9 hole peg test: Right = 6 min 7 sec with therapist assist with 2 pegs due to patient frustration. Left = 54 seconds. Patient showed limitations with in hand manipulation. He would use fingers to drag peg into palm and then struggled with transition from palm to finger tip. See paper copies of patient clock face and "heart" cancellation for visual perception testing. Patient's visual [place] showed 35 deg to right side with center being 0 deg and 75 deg on the left. Superior visual field only to 45 deg. Patient shows some signs of begining to compensate for visual field and perception deficits as seen by patient moving paper over toward left side for cancellation testing as well as trying to turn head to right side for visual tracking ex. Patient was able to scan but showed deficet in pursuits/tracking toward right side. Patient loosing fixation at about 35 deg toward right side but able to pick dowel back up until about 65 deg. Patient also showed some deficits with proprioception but feel this will need to be retested due to loud distractive therapy gym and decreased ability to hear patient's replies. Also unsure if patient was clear on instructions. Also recommend testing sterognosis.) Occupational Therapy Problem List: Detail (1. Decreased right UE strength, coordination and sensation needed for safe and Ind ADLs/IADLs. 2. Decreased Ind with showering. 3. Decreased Ind with grooming/hygiene. 4. Decreased Ind with total body dressing. 5. Decreased endurance needed for functional Ind.) Occupational Therapy Goals: 1. Pt will demonstrated functional use of right UE for all ADL/IADL tasks. 2. Pt will be Ind with showering in standing or sitting. 3. Pt will be Ind with total body dressing. 4. Pt will demonstrate improve endurance needed for Ind self cares. 5. Pt will be Ind with grooming/ hygiene tasks. Prognosis: Moderate Occupational Therapy Plan: OT 2-4 times per week to address goals as above. Thank you for this referral.
--- NOTE | 2018-07-18 17:34 | Speech Therapy Tx Note ---
Speech Therapy Tx Note - Time With Patient Total Time Spent With Patient (Min): 45 - Treatment Note Patient Concerns: is concerned regarding change in communication, cognition and ADL completion. She has a difficult time hearing him with his newly aquired dysarthria Speech Therapy Treatment Note: Patient and in attendance for treatment this date. Patient seated in chair in hospital room for the duration of the treatment. Patient states he is doing well today. Patient left with chair alarm intact and call button and within reach prior to therapist exiting the room. - Cognition Orientation: Person Attention: Divided, Complex Executive Functions: Problem Solving Cognition Comment: Patient cognition remains impaired for complex tasks however his responsivness to simple tasks or information broken down into single steps has improved and he demonstrated up to three step commands with the instructions organized in this way for 2/3 attempts. Patient is willing and cooperative for treatment and has the support of his during most treatment sessions. Patient benefits from increased processing time for most responses and use of repetition and increased volume. Voice & Motor Speech Tx Note Voice: Breath Support Dysarthria: Mild Aware of Difficulties: No (Probes for louder vocal production were intermittent. ) Voice & Motor Speech Comment: Emphasis this date on training breathing technique for sustained phonation exercise to improve breath support for functional speech. Patient articulatory precision and vocal loudness are inadquate through poor breath support. Average duration of sustained phonation is only approximately 6 seconds and the average should be somewhere between 12- 15 seconds at the least and into 20 seconds at the most.
[2018-07-18] MEDS: DONEPEZIL HCL 5 MG TABLET PO SCH (22:06)
[2018-07-19] MEDS: ASPIRIN 81 MG TABEC PO SCH (09:28)
[2018-07-19] MEDS: TERAZOSIN HCL 1 MG CAPSULE PO SCH ×2 (09:28→21:48)
[2018-07-19] MEDS: CHOLECALCIFEROL 1,000 UNIT TABLET PO SCH (09:29)
[2018-07-19] MEDS: APIXABAN 5MG TABLET PO SCH ×2 (09:29→21:48)
[2018-07-19] MEDS: SIMVASTATIN 20 MG TABLET PO SCH (09:29)
[2018-07-19] MEDS: ASCORBIC ACID 500 MG TAB PO SCH (09:29)
[2018-07-19] MEDS: DONEPEZIL HCL 5 MG TABLET PO SCH (21:47)
[2018-07-20] MEDS: CHOLECALCIFEROL 1,000 UNIT TABLET PO SCH (09:11)
[2018-07-20] MEDS: ASCORBIC ACID 500 MG TAB PO SCH (09:11)
[2018-07-20] MEDS: TERAZOSIN HCL 1 MG CAPSULE PO SCH ×3 (09:11→22:29)
[2018-07-20] MEDS: ASPIRIN 81 MG TABEC PO SCH (09:13)
[2018-07-20] MEDS: APIXABAN 5MG TABLET PO SCH ×3 (09:13→22:29)
[2018-07-20] MEDS: SIMVASTATIN 20 MG TABLET PO SCH (09:13)
[2018-07-20] MEDS ORDERED: ZINC OXIDE 28.35 GM TUBE TOP ONE (11:17)
[2018-07-20] MEDS ORDERED: ZINC OXIDE 28.35 GM TUBE TOP PRN (11:33)
[2018-07-20] MEDS: DONEPEZIL HCL 5 MG TABLET PO SCH ×2 (20:46→22:29)
[2018-07-20] MEDS: GENTAMICIN SULFATE 0.3% OPTH 5 ML BTL OPTH PRN (20:46)
[2018-07-21 06:24] LABS: BASO % 1.1 % (0-6); EOS % 5.3 % (0-6); GRAN % 61.8 % (47-80); HEMATOCRIT 41.2 % (42.0-52.0); HEMOGLOBIN 13.9 gm/dl (14.0-18.0); LYMPH % 23.7 % (16-45); MEAN CELL VOLUME 89.8 fl (81-97); MEAN CORPUSCULAR HGB CONC 33.7 g/dl (32-36); MEAN PLATELET VOLUME 11.1 fl (7.4-10.4); MONO % 8.1 % (0-9); PLATELET COUNT 149 K/uL (130-400); RED BLOOD COUNT 4.59 M/uL (4.40-5.70); RED CELL DISTRIBUTION WIDTH 15.2 % (11.5-14.5); WHITE BLOOD COUNT W/O DIFF 5.7 K/uL (4.2-12.2)
[2018-07-21 06:26] LABS: MEAN CORPUSCULAR HEMOGLOBIN 30.2 pg (27-33)
[2018-07-21 06:45] LABS: ALB/GLOB RATIO 1.2 (1.1-1.8); ALBUMIN 3.4 g/dL (4.0-5.0); ALKALINE PHOSPHATASE 60 U/L (40-129); ALT/SGPT 24 U/L (<41); AST/SGOT 20 U/L (10.0-50.0); BLOOD UREA NITROGEN 20 mg/dL (8-23); EST GLOMERULAR FILTRATION RATE > 60 mL/min; GLUCOSE,RANDOM 97 mg/dL (74-109); TOTAL PROTEIN 6.3 g/dL (6.6-8.7)
--- NOTE | 2018-07-21 09:32 | Occupational Therapy Tx Note ---
Occupational Therapy Tx Note - Treatment Note Tolerated: Good Total Time Spent With Patient: 45 (ADL) Occupational Therapy Treatment Note: Detail (S: Pt up in chair, reports having a nice weekend. O: Sit to stand from recliner with 2 wheeled walker and SBA. Pt amb to shower with 2 wheeled walker and SBA. He doffed button down shirt with verbal cues for modified technique, he was able to manipulate buttons Indly with mild difficulty. Pt doffed t-shirt Indly, he doffed pants, briefs and slipper socks Indly but had mod difficulty. Pt completed showering in sitting and standing with verbal cues and SBA while standing. He was able to perform washing hair with assist to squeeze shampoo bottle due to weakness in right hand. Pt utilized walker and grab bar for sit to stand and during standing. Pt dried self Indly. Pt amb to chair with 2 wheeled walker and SBA. Pt applied deoderant and powder Indly. Pt donned t-shirt and button down shirt with verbal cues for modified technique and verbal cues to button right sleeve. Pt donned briefs and PJ bottoms with min assist for right foot and verbal cues for technique. Pt donned slip on slipper with shoe horn and min assist for heels. Pt fatigued after ADLs. A: Right UE weakness and decreased coordination impairing pts Ind with self cares although improvement is noted. Pt is minimally verbal but appropriate. Min assist for squeezing shampoo and dressing tasks.) Occupational Therapy Problem List: Detail (1. Decreased right UE strength, coordination and sensation needed for safe and Ind ADLs/IADLs. 2. Decreased Ind with showering. 3. Decreased Ind with grooming/hygiene. 4. Decreased Ind with total body dressing. 5. Decreased endurance needed for functional Ind.) Occupational Therapy Goals: 1. Pt will demonstrated functional use of right UE for all ADL/IADL tasks. 2. Pt will be Ind with showering in standing or sitting. 3. Pt will be Ind with total body dressing. 4. Pt will demonstrate improve endurance needed for Ind self cares. 5. Pt will be Ind with grooming/ hygiene tasks. Prognosis: Good Occupational Therapy Plan: OT 2-4 times per week to address goals as above. Thank you for this referral.
[2018-07-21] MEDS: CHOLECALCIFEROL 1,000 UNIT TABLET PO SCH (09:43)
[2018-07-21] MEDS: ASPIRIN 81 MG TABEC PO SCH (09:43)
[2018-07-21] MEDS: APIXABAN 5MG TABLET PO SCH ×2 (09:43→22:04)
[2018-07-21] MEDS: ASCORBIC ACID 500 MG TAB PO SCH (09:44)
[2018-07-21] MEDS: SIMVASTATIN 20 MG TABLET PO SCH (09:44)
[2018-07-21] MEDS: TERAZOSIN HCL 1 MG CAPSULE PO SCH ×2 (09:45→22:04)
--- NOTE | 2018-07-21 14:55 | Physical Therapy Tx Note ---
Physical Therapy Tx Note - Treatment Note Tolerated: Good Total Time Spent With Patient: 30 Physical Therapy Tx Note: Detail (The patient was in bathroom when PT arrived the patient ambulated with 2 wheeled walker a distance of 225 feet x 2 with supervision for safety. The patient completed the following balance exercises: standing with varying bases of support with perturbations, standing on foam with wide base of support and perturbations, walking sideways and backwards, stepping over objects, zaki totter weight shift. LE strengthening exercises: steps with R LE , squats with equal weight bearing and heel raises. The patient was able to step over objects better today. 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 (Goal Met). 2) The patient will be independent with all transfers. 3) The patient will be independent with bed mobility (Goal Met). 4) The patient will be independent and safe with ambulation with appropriate assistive device community distances. 5) The patient will ambulate on stairs with supervision for safety. Physical Therapy Plan: 1-2 times a day M-F for gait training, LE strengthening exercises, balance and coordination exercises, transfer training and bed mobility.
[2018-07-21] MEDS ORDERED: NYSTATIN 15 GM POWDER TP PRN (15:35)
[2018-07-21] MEDS ORDERED: NYSTATIN 15 GM POWDER TP ONE (15:38)
[2018-07-21] MEDS: GENTAMICIN SULFATE 0.3% OPTH 5 ML BTL OPTH PRN (15:46)
[2018-07-21] MEDS: DONEPEZIL HCL 5 MG TABLET PO SCH (22:04)
--- NOTE | 2018-07-22 10:34 | Occupational Therapy Tx Note ---
Occupational Therapy Tx Note - Treatment Note Tolerated: Good Total Time Spent With Patient: 50 (gait, ther ex) Occupational Therapy Treatment Note: Detail (S: Pt up in chair, visiting with . O: Sit to stand and amb approx 500 feet to rehab gym with 2 wheeled walker and SBA. Pt able to ambulate around obstacles appropriately. Pt completed right UE activities including resistive, repetitive pinch and reach overhead using graded clothespins. Pt required minimal verbal cuing to locate objects on the right side at times. Pt able to verbalize all colors appropriately. Pt completed theraputty exercises with right hand including aquatics director , rolling and pinch for 8 minutes. Pt completed rice dig with right hand and he was able to name all objects accurately. Stereognosis testing demonstrates intact sensation, proprioception also tested intact in right UE. Pt transported back to room via wheelchair. A: Pt demonstrates intact stereognosis and proprioception in right UE, right sided visual field cut noted with activities, right UE fatigue with repetitive reaching/aquatics director tasks.) Occupational Therapy Problem List: Detail (1. Decreased right UE strength, coordination and sensation needed for safe and Ind ADLs/IADLs. 2. Decreased Ind with showering. 3. Decreased Ind with grooming/hygiene. 4. Decreased Ind with total body dressing. 5. Decreased endurance needed for functional Ind.) Occupational Therapy Goals: 1. Pt will demonstrated functional use of right UE for all ADL/IADL tasks. 2. Pt will be Ind with showering in standing or sitting. 3. Pt will be Ind with total body dressing. 4. Pt will demonstrate improve endurance needed for Ind self cares. 5. Pt will be Ind with grooming/ hygiene tasks. Prognosis: Good Occupational Therapy Plan: OT 2-4 times per week to address goals as above. Thank you for this referral.
[2018-07-22] MEDS: TERAZOSIN HCL 1 MG CAPSULE PO SCH ×2 (11:14→22:34)
[2018-07-22] MEDS: APIXABAN 5MG TABLET PO SCH ×2 (11:14→22:35)
[2018-07-22] MEDS: SIMVASTATIN 20 MG TABLET PO SCH (11:14)
[2018-07-22] MEDS: ASCORBIC ACID 500 MG TAB PO SCH (11:15)
[2018-07-22] MEDS: ASPIRIN 81 MG TABEC PO SCH (11:15)
[2018-07-22] MEDS: CHOLECALCIFEROL 1,000 UNIT TABLET PO SCH (11:16)
--- NOTE | 2018-07-22 15:03 | Speech Therapy Tx Note ---
Speech Therapy Tx Note - Time With Patient Total Time Spent With Patient (Min): 25 - Treatment Note Patient Concerns: is concerned regarding change in communication, cognition and ADL completion. She has a difficult time hearing him with his newly aquired dysarthria Tolerated: Good Speech Therapy Treatment Note: Pt seen seated upright in chair with chair alarm in place. Patient had bedside table in front of him with water and call button within reach. Patient reviewed some general probes for cognition, patient is following 2 step commands with extended time, and information provided in basic concepts. Patient emphasis on exercises for improved articulation through improving breath support. Patient completed two exercises, a diaphragmatic breathing exercise and a sustained pitch exercise to increase breath capacity for improved speech production. Up to 7 second "ah" this date with moderate cues. Breathing exercise completed with moderate cues. 2 sets of 10 completed for each exercise. Patient left in room with chair alarm intact and call button in reach. - Cognition Orientation: Person Attention: Divided, Complex Cognition Comment: Patient oriented to self, unable to describe what he had for lunch. This may be typical for his level of cognition given the reports from his in the past.
--- NOTE | 2018-07-22 16:09 | Physical Therapy Tx Note ---
Physical Therapy Tx Note - Treatment Note Tolerated: Good Total Time Spent With Patient: 25 Physical Therapy Tx Note: Detail (The patient ambulated 215 feet on carpet and tile floor with front wheeled walker with supervision for safety only. The patient ambulated x 3 on steps with use of both 2 and only one railing. The patient required only occasional verbal cues due to R hand lag. The patient was able to hang onto railing with R hand only. The patient was returned to room and returned to chair with chair alarm set. 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 (Goal Met). 2) The patient will be independent with all transfers. 3) The patient will be independent with bed mobility (Goal Met). 4) The patient will be independent and safe with ambulation with appropriate assistive device community distances. 5) The patient will ambulate on stairs with supervision for safety. Physical Therapy Plan: 1-2 times a day M-F for gait training, LE strengthening exercises, balance and coordination exercises, transfer training and bed mobility.
[2018-07-22] MEDS: DONEPEZIL HCL 5 MG TABLET PO SCH (22:35)
[2018-07-23] MEDS: IBUPROFEN 400 MG TABLET PO PRN (02:02)
[2018-07-23] MEDS: GENTAMICIN SULFATE 0.3% OPTH 5 ML BTL OPTH PRN (07:02)
[2018-07-23] MEDS: ASCORBIC ACID 500 MG TAB PO SCH (09:48)
[2018-07-23] MEDS: ASPIRIN 81 MG TABEC PO SCH (09:48)
[2018-07-23] MEDS: APIXABAN 5MG TABLET PO SCH ×2 (09:49→21:36)
[2018-07-23] MEDS: TERAZOSIN HCL 1 MG CAPSULE PO SCH ×2 (09:49→21:38)
[2018-07-23] MEDS: SIMVASTATIN 20 MG TABLET PO SCH (09:50)
[2018-07-23] MEDS: CHOLECALCIFEROL 1,000 UNIT TABLET PO SCH (09:50)
--- NOTE | 2018-07-23 14:08 | Occupational Therapy Tx Note ---
Occupational Therapy Tx Note - Treatment Note Tolerated: Good Total Time Spent With Patient: 45 (ther ex, neuro reeduc, cog/visual perc) Occupational Therapy Treatment Note: Detail (S: Pt up in chair, ready for OT. O: Sit to stand and amb to rehab gym with 2 wheeled walker Indly. Pt completed cognition/visual perceptual activities as follows: tracking - pt missed 1 but required significant time to complete "cross out the M's", draw a clock - pt able to draw a complete [place] with clock hands but he was unable to add numbers even with verbal cues, body part activity was 100%, laterality was 50% (pt was 100% on his body parts but 0% on therapist laterality), directionality 5/8, ideomotor task was 100%, he was oriented to self , birthday , month, where he lives, location and president. He was not oriented to day of week, age, year or next holiday. He was able to complete simple calculations / 8 correctly. Pt then completed right UE coordination task with nuts and bolts. Pt left with PT in rehab gym. A: Pt continues with significant cognitive and visual perceptual deficits although he is slowly improving.) Occupational Therapy Problem List: Detail (1. Decreased right UE strength, coordination and sensation needed for safe and Ind ADLs/IADLs. 2. Decreased Ind with showering. 3. Decreased Ind with grooming/hygiene. 4. Decreased Ind with total body dressing. 5. Decreased endurance needed for functional Ind.) Occupational Therapy Goals: 1. Pt will demonstrated functional use of right UE for all ADL/IADL tasks. 2. Pt will be Ind with showering in standing or sitting. 3. Pt will be Ind with total body dressing. 4. Pt will demonstrate improve endurance needed for Ind self cares. 5. Pt will be Ind with grooming/ hygiene tasks. Prognosis: Good Occupational Therapy Plan: OT 2-4 times per week to address goals as above. Thank you for this referral.
--- NOTE | 2018-07-23 15:25 | Physical Therapy Tx Note ---
Physical Therapy Tx Note - Treatment Note Tolerated: Good Total Time Spent With Patient: 30 Physical Therapy Tx Note: Detail (The patient was seen after OT treatment. The patient was instructed in facial exercises and facial muscle massage. The patient completed the following balance exercises in the parallel bars: stepping over objects, throwing and catching ball, staning with varying bases of support on foam, ambulating sideways and backwards. The patient was fatigued stating he was tired. 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 (Goal Met). 2) The patient will be independent with all transfers. 3) The patient will be independent with bed mobility (Goal Met). 4) The patient will be independent and safe with ambulation with appropriate assistive device community distances. 5) The patient will ambulate on stairs with supervision for safety. Physical Therapy Plan: 1-2 times a day M-F for gait training, LE strengthening exercises, balance and coordination exercises, transfer training and bed mobility.
[2018-07-23] MEDS: DONEPEZIL HCL 5 MG TABLET PO SCH (21:36)
[2018-07-24] MEDS: APIXABAN 5MG TABLET PO SCH ×2 (09:25→22:51)
[2018-07-24] MEDS: CHOLECALCIFEROL 1,000 UNIT TABLET PO SCH (09:25)
[2018-07-24] MEDS: ASPIRIN 81 MG TABEC PO SCH (09:25)
[2018-07-24] MEDS: SIMVASTATIN 20 MG TABLET PO SCH (09:26)
[2018-07-24] MEDS: TERAZOSIN HCL 1 MG CAPSULE PO SCH ×2 (09:26→22:50)
[2018-07-24] MEDS: ASCORBIC ACID 500 MG TAB PO SCH (09:27)
--- NOTE | 2018-07-24 09:57 | Physician Progress Note ---
Subjective - Date Date of Progress Note: 07/24/18 - Admitting Diagnosis Diagnosis: Deconditioning r/t CVA - Subjective Nursing Care Plan Problem List Activity Intolerance (Swing Bed) Start: 07/15/18 14: 03 Freq: Status: Active Protocol: Created 07/15/18 14:03 [facility] (Rec: 07/15/18 14:03 [facility] [id number]) Altered Thought Process (Fall Risk) Start: 07/16/18 10: 43 Freq: Status: Active Protocol: Created 07/16/18 10:43 [facility] (Rec: 07/16/18 10:43 [facility] [id number]) Impaired Mobility (Fall Risk) Start: 07/16/18 10: 43 Freq: Status: Active Protocol: Created 07/16/18 10:43 [facility] (Rec: 07/16/18 10:43 [facility] [id number]) Knowledge Deficit (Swing Bed) Start: 07/15/18 14: 03 Freq: Status: Active Protocol: Created 07/15/18 14:03 [facility] (Rec: 07/15/18 14:03 [facility] [id number]) Pain (Swing Bed) Start: 07/15/18 14: 03 Freq: Status: Active Protocol: Created 07/15/18 14:03 [facility] (Rec: 07/15/18 14:03 [facility] [id number]) Risk for Injury (Fall Risk) Start: 07/16/18 10: 43 Freq: Status: Active Protocol: Created 07/16/18 10:43 [facility] (Rec: 07/16/18 10:43 [facility] [id number]) Subjective: The patient is sitting in the restroom being shaved this morning. He is alert, poorly oriented but cooperative with examination. He says that he is coming along and has no complaint at this time. General - Cognitive Patterns Speech: Slurred Thought Process: Can Only Follow 1-Step Directions Thought Content: Normal - Communication Select best description of speech pattern: Unclear Speech Ability to express ideas and wants: Usually Understood Understanding verbal content: Understands - Mood and Behavior Patterns Appearance: Disheveled Mood: Normal Attitude: Cooperative Motor Activity: Calm Affect: Appropriate Hallucinations: Denies - Physical Functioning Activity Level: Up with assist x1 Turning: Self ad regine ROM Ability: Moves all extremities, Limited/Compromised Assistive Devices: 2 Wheel Walker Ambulation Ability: Needs Assist Bed Mobility: Independent Transfer Ability: Needs Assist Bathing Ability: Needs Assist Personal Hygiene: Needs Assist Dressing Ability: Needs Assist Eating (Feeding) Ability: Independent Toileting Ability: Needs Assist Administer Own Medication: Needs Assist - Continence Bowel Pattern: Normal for Patient Bladder Pattern: Normal Meds/Allergies - Allergies Allergies Allergy/AdvReac Type Severity Reaction Status Date / Time Penicillins Allergy Unknown RASH Verified 07/12/18 15:35 - Active Medications Current Medications Apixaban (Eliquis) 5 mg PO BID [facility] Last Admin: 07/24/18 09:25 Dose: 5 mg Ascorbic Acid (Vitamin C) 500 mg PO DAILY [facility] Last Admin: 07/24/18 09:27 Dose: 500 mg Aspirin (Ecotrin (Ec)) 81 mg PO DAILY [facility] Last Admin: 07/24/18 09:25 Dose: 81 mg Donepezil HCl (Aricept) 10 mg PO QHS [facility] Last Admin: 07/23/18 21:36 Dose: 10 mg Gentamicin Sulfate () 1 drop OPTH Q4H PRN PRN Reason: eye drainage Last Admin: 07/23/18 07:02 Dose: 1 drop Ibuprofen (Motrin 400mg) 800 mg PO Q8H PRN PRN Reason: PAIN - MILD TO MODERATE (1-7) Last Admin: 07/23/18 02:02 Dose: 800 mg Nystatin (Nystop) 15 gm TP ASDIR PRN PRN Reason: yeast Simvastatin (Zocor) 40 mg PO DAILY [facility] Last Admin: 07/24/18 09:26 Dose: 40 mg Terazosin HCl (Hytrin) 2 mg PO BID [facility] Last Admin: 07/24/18 09:26 Dose: 2 mg Vitamin D (Vitamin D3) 1,000 unit PO DAILY [facility] Last Admin: 07/24/18 09:25 Dose: 1,000 unit Zinc Oxide (Desitin) 10 gm TOP ASDIR PRN PRN Reason: RASH Objective - Vital Signs Vital Signs: Vital Signs - Last 24 Hrs Temp Pulse Resp BP BP Pulse Ox 07/24/18 07:41 97.9 F 64 16 137/85 96 07/23/18 20:00 98 F 70 16 158/84 98 - General General Appearance: Alert, No acute distress Limitations: Altered mental status - Head Head exam: Atraumatic - Eye Eye exam: Normal appearance - ENT ENT exam: Normal exam, Mucous membranes moist Mouth exam: Drooling (from right side) - Respiratory Respiratory exam: Normal lung sounds bilaterally - Cardiovascular Cardiovascular Exam: Normal rhythm, Normal heart sounds Peripheral Pulses: 2+: Radial (R), Radial (L), Dorsalis Pedis (R), Dorsalis Pedis (L) - GI/Abdominal GI/Abdominal exam: Soft, Normal bowel sounds - Rectal Rectal exam: Deferred - exam: Deferred - Extremities Extremities exam: Normal inspection - Neurological Neurological exam: Abnormal gait, Altered (confused), Other (motor right: 3/5, left: 5/5 ) - Psychiatric Psychiatric exam: Normal affect, Normal mood - Skin Skin exam: Dry, Warm H&P Results - Labs Result Diagrams: 07/21/18 06:10 07/21/18 06:10 Discharge Potential - Discharge Needs Community Services Used Prior to Admission: None Patient Discharge Plan Description: Return Home Community Services Needed at Discharge: Transportation Plan - Swing Bed Certification Initial Certification Due: 07/15/18 14 Day Re-Cert Due: 07/29/18 44 Day Re-Cert Due: 08/28/18 74 Day Re-Cert Due: 09/27/18 - Detailed Diagnosis and Plan (1) Physical deconditioning Current Visit: Yes Status: Acute Base Code: R53.81 - OTHER MALAISE Comment : 07/24/18: Recent CVA 07/12/18 - CT head shows new left frontal lacunar infart - Improving right-sided weakness with facial droop with daily PT/OT. (2) Expressive aphasia Current Visit: Yes Status: Acute Base Code: R47.01 - APHASIA Comment: 07/24/18: CT head shows new left frontal lacunar infart 07/12 - [employer]PERATOR to evaluate weekly. (3) Dementia Current Visit: Yes Status: Acute Base Code: F03.90 - UNSPECIFIED DEMENTIA WITHOUT BEHAVIORAL DISTURBANCE Comment: 07/24/18: -Patient has demetia per baseline, assisting at bedside -Continue Donepezil 10mg PO QHS (4) Stroke Current Visit: No Status: Acute Qualifiers: Laterality of affected vessel: left Base Code: I63.9 - CEREBRAL INFARCTION, UNSPECIFIED Comment: 07/24/18: - S/P left frontal lucunar infarct. - Right sided motor deficits, expressive aphasia. (5) Chronic a-fib Current Visit: Yes Status: Acute Base Code: I48.2 - CHRONIC ATRIAL FIBRILLATION Comment: 07/24/18: -Continue Eliquis 5mg BID (6) DVT prophylaxis Current Visit: Yes Status: Acute Base Code: [id number] - Comment: 07/24/18: -High risk due to hospitalization and recent CVA -Continue Eliquis 5mg BID -Encourage ambulation with PT/OT (7) Full code status Current Visit: Yes Status: Acute Base Code: Z78.9 - OTHER SPECIFIED HEALTH STATUS Comment: 07/24/18: -Patient is a full code this admission
--- NOTE | 2018-07-24 12:51 | Speech Therapy Tx Note ---
Speech Therapy Tx Note - Time With Patient Total Time Spent With Patient (Min): 30 - Treatment Note Patient Concerns: is concerned regarding change in communication, cognition and ADL completion. She has a difficult time hearing him with his newly aquired dysarthria Speech Therapy Treatment Note: Patient is participating in ST treatment well. Patient is on a modified diet per request and appears to have no overt s/s of oropharyngeal dysphagia he does however have diverticulitis and some difficulty with behavior modification for safe swallowing such as large bolus size and fast pace with PO intake. Batsheva his shared that she cuts his food up into small pieces and monitors for foods that he cannot have due to the diverticulitis. Patient has cognitive deficits at baseline but the extent of these deficits is difficult to assertain. We attempted a cognitive screener but due to his visual and motor deficits it was unable to be completed with validity. - Cognition Orientation: Person, Purpose Attention: Sustained Executive Functions: Planning, Problem Solving Cognition Comment: Patient maintains a moderate level of cognitive deficit. Per his Batsheva he is close to how he was at home in regards to his cognitive function and requiring additional assistance for complex tasks is typical. This date Jack demonstrated two step commands up to 75% accuracy when using compensatory strategies such as repetition and basic language. Voice & Motor Speech Tx Note Voice: Breath Support Dysarthria: Mild Voice & Motor Speech Comment: Dysarthria characteristics appear to be resolving however patient maintains some difficulty with adequate breath support for appropriate conversational loudness during conversation. Patient is stimulible for functional vocal loudness and maintains a good quality loudness with consistent moderate verbal cues. Up to 10 second "oh" this date.
--- NOTE | 2018-07-24 16:50 | Physical Therapy Tx Note ---
Physical Therapy Tx Note - Treatment Note Tolerated: Good Total Time Spent With Patient: 30 Physical Therapy Tx Note: Detail (Pt sitting up in chair upon arrival, meeting with home care agency rep, and dtr present. Ambulated independently w/ front wheeled walker to bathroom, assisted by in bathroom, then out to end of ED hallway and returned to bedside chair (500+ feet) w/supervision. Minimal fatigue reported, minimal shortness of breath. Rested in chair for few minutes , performed facial exercises. Sit<>stand w/SBA to recliner. Performed balance exercises: narrow stance and stride stances with head movements, eyes open/ closed; marching in place, standing with B and alt arm lifts, pivot 360 B directions. Walk forward/backward/right/left w/B [employer]. Left up in recliner w/ chair alarm in place and call light and bedside table in reach.) Physical Therapy Problem List: Detail (1) Bilateral knee pain 2) Decreased R LE strength and decreased coordination 3) Impaired ambulation secondary to CVA 4) Decreased balance in standing) Physical Therapy Goals: 1) Assess the patient's bed mobilty and balance using an objective balance scale. (Goal Met). 2) The patient will be independent with all transfers. 3) The patient will be independent with bed mobility (Goal Met). 4) The patient will be independent and safe with ambulation with appropriate assistive device community distances. 5) The patient will ambulate on stairs with supervision for safety. Prognosis: Good Physical Therapy Plan: 1-2 times a day M-F for gait training, LE strengthening exercises, balance and coordination exercises, transfer training and bed mobility.
[2018-07-24] MEDS: DONEPEZIL HCL 5 MG TABLET PO SCH (22:51)
[2018-07-25] MEDS: CHOLECALCIFEROL 1,000 UNIT TABLET PO SCH (09:18)
[2018-07-25] MEDS: TERAZOSIN HCL 1 MG CAPSULE PO SCH ×2 (09:18→21:05)
[2018-07-25] MEDS: ASCORBIC ACID 500 MG TAB PO SCH (09:18)
[2018-07-25] MEDS: APIXABAN 5MG TABLET PO SCH ×2 (09:18→21:05)
[2018-07-25] MEDS: ASPIRIN 81 MG TABEC PO SCH (09:18)
[2018-07-25] MEDS: SIMVASTATIN 20 MG TABLET PO SCH (09:18)
--- NOTE | 2018-07-25 11:18 | Occupational Therapy Tx Note ---
Occupational Therapy Tx Note - Treatment Note Tolerated: Good Total Time Spent With Patient: 45 (cog, neuro reeduc, ADL) Occupational Therapy Treatment Note: Detail (S: Pt up in chair with , pleasant and ready for OT. O: Sit to stand and amb to rehab gym with 2 wheeled walker and SBA. Pt completed cognitive/visual perceptual activities with paper/pencil including clock, word search, orientation questions. Pt able to draw clock including numbers with good orientation and he was able to draw accurate time with clock hands. He stated month as June, year as 1969, next holiday as and was otherwise oriented. Pt completed dowel ring activity for right UE coor and visual perc (looking to the right side). Pt completed right UE coordination task involving man chicken picker with mild difficulty and sponge chicken picker/squeeze/flicking. Pt able to doff slipper socks with min assist, donned socks with assist to start over toes, slip on shoes with shoe horn, verbal cues and min assist. Pt left with PT in rehab gym. A: Improving right UE coordination although hand fatigues quickly, mild confusion continues with orientation, visual perception improving) Occupational Therapy Problem List: Detail (1. Decreased right UE strength, coordination and sensation needed for safe and Ind ADLs/IADLs. 2. Decreased Ind with showering. 3. Decreased Ind with grooming/hygiene. 4. Decreased Ind with total body dressing. 5. Decreased endurance needed for functional Ind.) Occupational Therapy Goals: 1. Pt will demonstrated functional use of right UE for all ADL/IADL tasks. 2. Pt will be Ind with showering in standing or sitting. 3. Pt will be Ind with total body dressing. 4. Pt will demonstrate improve endurance needed for Ind self cares. 5. Pt will be Ind with grooming/ hygiene tasks. Prognosis: Good Occupational Therapy Plan: OT 2-4 times per week to address goals as above. Thank you for this referral.
--- NOTE | 2018-07-25 11:31 | Physical Therapy Tx Note ---
Physical Therapy Tx Note - Treatment Note Tolerated: Good Total Time Spent With Patient: 20 Physical Therapy Tx Note: Detail (The patient ambulated with front wheeled walker out doors and completed a curb step with CG and verbal cues for proper technique. The patient then completed balance exercises, standing with varying bases of support with perturbations: mid stance, feet together and feet apart. The patient completed in seated alternate ankle taps, knee extension and hip marching. The patient was fatigued and returned to room. Will see patient this pm with observing stair climbing.) Physical Therapy Problem List: Detail (1) Bilateral knee pain 2) Decreased R LE strength and decreased coordination 3) Impaired ambulation secondary to CVA 4) Decreased balance in standing) Physical Therapy Goals: 1) Assess the patient's bed mobilty and balance using an objective balance scale. (Goal Met). 2) The patient will be independent with all transfers. 3) The patient will be independent with bed mobility (Goal Met). 4) The patient will be independent and safe with ambulation with appropriate assistive device community distances. 5) The patient will ambulate on stairs with supervision for safety. Physical Therapy Plan: 1-2 times a day M-F for gait training, LE strengthening exercises, balance and coordination exercises, transfer training and bed mobility.
--- NOTE | 2018-07-25 15:55 | Physical Therapy Tx Note ---
Physical Therapy Tx Note - Treatment Note Tolerated: Good Total Time Spent With Patient: 25 Physical Therapy Tx Note: Detail (With present the patient ambulated on stairs with use of one railing, R side going down, L side going up. The patient required supervision for safety only with stair climbing. The patient ambulated back to room 1/2 with front wheeled walker and 1/2 without device with CG for safety only. The patient's shuffle gait pattern was increased when ambulating without device. The patient completed balance exercises in the hallway including walking sideways and backwards, standing in tandem position, standing with eyes closed, standing without support and looking side to side. The patient continues to have improved balance and gait pattern. The patient's continues to be anxious about patient coming home including tub transfer. Suggested to patient's that PT/OT complete a home evaluation to look at 's concerns. Patient's to think about it. The patient agreed and was anxious for a home evaluation.) Physical Therapy Problem List: Detail (1) Bilateral knee pain 2) Decreased R LE strength and decreased coordination 3) Impaired ambulation secondary to CVA 4) Decreased balance in standing) Physical Therapy Goals: 1) Assess the patient's bed mobilty and balance using an objective balance scale. (Goal Met). 2) The patient will be independent with all transfers. 3) The patient will be independent with bed mobility (Goal Met). 4) The patient will be independent and safe with ambulation with appropriate assistive device community distances. 5) The patient will ambulate on stairs with supervision for safety.(Goal Met) Physical Therapy Plan: 1-2 times a day M-F for gait training, LE strengthening exercises, balance and coordination exercises, transfer training and bed mobility.
[2018-07-25] MEDS: DONEPEZIL HCL 5 MG TABLET PO SCH (21:05)
[2018-07-26] MEDS: IBUPROFEN 400 MG TABLET PO PRN (03:02)
[2018-07-26] MEDS: DRY EYES OPTH PRN (03:45)
[2018-07-26] MEDS: TERAZOSIN HCL 1 MG CAPSULE PO SCH ×2 (09:25→21:05)
[2018-07-26] MEDS: ASPIRIN 81 MG TABEC PO SCH (09:25)
[2018-07-26] MEDS: APIXABAN 5MG TABLET PO SCH ×2 (09:25→21:05)
[2018-07-26] MEDS: ASCORBIC ACID 500 MG TAB PO SCH (09:25)
[2018-07-26] MEDS: CHOLECALCIFEROL 1,000 UNIT TABLET PO SCH (09:25)
[2018-07-26] MEDS: SIMVASTATIN 20 MG TABLET PO SCH (09:26)
[2018-07-26] MEDS: DONEPEZIL HCL 5 MG TABLET PO SCH (21:05)
[2018-07-27] MEDS: SIMVASTATIN 20 MG TABLET PO SCH (09:52)
[2018-07-27] MEDS: ASPIRIN 81 MG TABEC PO SCH (09:52)
[2018-07-27] MEDS: CHOLECALCIFEROL 1,000 UNIT TABLET PO SCH (09:52)
[2018-07-27] MEDS: ASCORBIC ACID 500 MG TAB PO SCH (09:52)
[2018-07-27] MEDS: APIXABAN 5MG TABLET PO SCH ×2 (09:52→22:57)
[2018-07-27] MEDS: TERAZOSIN HCL 1 MG CAPSULE PO SCH ×2 (09:53→22:57)
[2018-07-27] MEDS ORDERED: LOPERAMIDE 2 MG CAPSULE PO PRN (15:59)
[2018-07-27] MEDS: DONEPEZIL HCL 5 MG TABLET PO SCH (22:57)
[2018-07-27] MEDS: IBUPROFEN 400 MG TABLET PO PRN (23:03)
[2018-07-28] MEDS: ASCORBIC ACID 500 MG TAB PO SCH (10:43)
[2018-07-28] MEDS: SIMVASTATIN 20 MG TABLET PO SCH (10:43)
[2018-07-28] MEDS: CHOLECALCIFEROL 1,000 UNIT TABLET PO SCH (10:43)
[2018-07-28] MEDS: TERAZOSIN HCL 1 MG CAPSULE PO SCH ×2 (10:43→21:00)
[2018-07-28] MEDS: ASPIRIN 81 MG TABEC PO SCH (10:43)
[2018-07-28] MEDS: APIXABAN 5MG TABLET PO SCH ×2 (10:43→21:00)
--- NOTE | 2018-07-28 15:34 | Physical Therapy Tx Note ---
Physical Therapy Tx Note - Treatment Note Tolerated: Good Total Time Spent With Patient: 30 Physical Therapy Tx Note: Detail (The patient was up in chair when PT arrived. The patient ambulated 500 feet x 1 with 2 wheeled walker on carpet and grass. The patient required CG when ambulating on grass. The patient ambulated without device 25 feet x 1 with supervision for safety only. The patient completed the following balance exercises: sideways walking, backwards walking (without handrail), tandem standing with CG, standing on one leg with handrail. The patient continues to progress well with ambulation. The patient had difficulty standing on R LE.) Physical Therapy Problem List: Detail (1) Bilateral knee pain 2) Decreased R LE strength and decreased coordination 3) Impaired ambulation secondary to CVA 4) Decreased balance in standing) Physical Therapy Goals: 1) Assess the patient's bed mobilty and balance using an objective balance scale. (Goal Met). 2) The patient will be independent with all transfers. 3) The patient will be independent with bed mobility (Goal Met). 4) The patient will be independent and safe with ambulation with appropriate assistive device community distances. 5) The patient will ambulate on stairs with supervision for safety.(Goal Met) Physical Therapy Plan: 1-2 times a day M-F for gait training, LE strengthening exercises, balance and coordination exercises, transfer training and bed mobility.
--- NOTE | 2018-07-28 16:14 | Occupational Therapy Tx Note ---
Occupational Therapy Tx Note - Treatment Note Tolerated: Good Total Time Spent With Patient: 55 (ADL, COG) Occupational Therapy Treatment Note: Detail (Met Pt in bedroom, Pt agreeable to OT Tx and motivated to return to PLOF. Pt completes LB dressing task with sock aide and dressing stick at SBA level - initial verbal instruction for technique , progressing to MOD I. OT engages Pt in cognitive / neuro-jose tasks: mental math 25/25 correct with very minor difficulty; body awareness of self and other - able to discriminate L vs. R 70% of times, becoming more difficult with mental fatigue; body scheme questions with 80% correct responses. Pt tolerates session well, motivated and requesting "homework" - given handouts to complete in room. Pt demos mental fatigue at end of session d/t cognitive tasks. Pt would benefit from continued skilled OT to improve cognition and increase independence with ADLs.) Occupational Therapy Problem List: Detail (1. Decreased right UE strength, coordination and sensation needed for safe and Ind ADLs/IADLs. 2. Decreased Ind with showering. 3. Decreased Ind with grooming/hygiene. 4. Decreased Ind with total body dressing. 5. Decreased endurance needed for functional Ind.) Occupational Therapy Goals: 1. Pt will demonstrated functional use of right UE for all ADL/IADL tasks. 2. Pt will be Ind with showering in standing or sitting. 3. Pt will be Ind with total body dressing. 4. Pt will demonstrate improve endurance needed for Ind self cares. 5. Pt will be Ind with grooming/ hygiene tasks. Prognosis: Good Occupational Therapy Plan: OT 2-4 times per week to address goals as above. Thank you for this referral.
[2018-07-28] MEDS: DONEPEZIL HCL 5 MG TABLET PO SCH (21:00)
[2018-07-29] MEDS: CHOLECALCIFEROL 1,000 UNIT TABLET PO SCH (09:08)
[2018-07-29] MEDS: ASPIRIN 81 MG TABEC PO SCH (09:08)
[2018-07-29] MEDS: SIMVASTATIN 20 MG TABLET PO SCH (09:08)
[2018-07-29] MEDS: ASCORBIC ACID 500 MG TAB PO SCH (09:08)
[2018-07-29] MEDS: APIXABAN 5MG TABLET PO SCH ×2 (09:09→22:27)
[2018-07-29] MEDS: TERAZOSIN HCL 1 MG CAPSULE PO SCH ×2 (09:09→22:27)
--- NOTE | 2018-07-29 14:05 | Occupational Therapy Tx Note ---
Occupational Therapy Tx Note - Treatment Note Tolerated: Good Occupational Therapy Treatment Note: Detail (Performed home visit in coordination with PT. Please see PT note for details.) Occupational Therapy Problem List: Detail (1. Decreased right UE strength, coordination and sensation needed for safe and Ind ADLs/IADLs. 2. Decreased Ind with showering. 3. Decreased Ind with grooming/hygiene. 4. Decreased Ind with total body dressing. 5. Decreased endurance needed for functional Ind.) Occupational Therapy Goals: 1. Pt will demonstrated functional use of right UE for all ADL/IADL tasks. 2. Pt will be Ind with showering in standing or sitting. 3. Pt will be Ind with total body dressing. 4. Pt will demonstrate improve endurance needed for Ind self cares. 5. Pt will be Ind with grooming/ hygiene tasks. Prognosis: Good Occupational Therapy Plan: OT 2-4 times per week to address goals as above. Thank you for this referral.
--- NOTE | 2018-07-29 14:13 | Physical Therapy Tx Note ---
Physical Therapy Tx Note - Treatment Note Tolerated: Good Total Time Spent With Patient: 50 Physical Therapy Tx Note: Detail (The patient was seen this afternoon with OT assisting for a home evaluation with present. The patient completed a car transfer with supervision for safety only. The patient was able to ascend and descend stairs with supervision for safety with railing on the R going up using a reciprocal gait pattern. The patient required verbal cueing to descend landing ( like a curb step). The patient ambulated with front wheeled walker independently throughout his home on varying surfaces including carpeting and tile floor. The patient completed a toilet transfer using walker to push up. A commode with handles was placed over toilet and patient was able to acheive transfer easier without pushing up on walker. The patient was also independent with shower transfer into shower stall with use of shower seat. The patient transferred into other bathroom tub/shower combination with use of tub seat with a transfer bench however due to small leg space the patient preferred using the shower stall with seat. The patient was independent with bed mobility . The kitchen was accessible. The patient was instructed in how to take objects out of fridge and to move objects along island and counter. The patient was independent with sit to and from stand from his recliner chair.The patient was independent with all mobility in home and a tub chair and a commode with handles from a [employer] closet were placed in the main bathroom. Feel the patient will do well with transfers at home. Discharge is planned for 07/31/18. ) Physical Therapy Problem List: Detail (1) Bilateral knee pain 2) Decreased R LE strength and decreased coordination 3) Impaired ambulation secondary to CVA 4) Decreased balance in standing) Physical Therapy Goals: 1) Assess the patient's bed mobilty and balance using an objective balance scale. (Goal Met). 2) The patient will be independent with all transfers. 3) The patient will be independent with bed mobility (Goal Met). 4) The patient will be independent and safe with ambulation with appropriate assistive device community distances. 5) The patient will ambulate on stairs with supervision for safety.(Goal Met) Physical Therapy Plan: 1-2 times a day M-F for gait training, LE strengthening exercises, balance and coordination exercises, transfer training and bed mobility.
--- NOTE | 2018-07-29 16:57 | Speech Therapy Disch Summary ---
Speech Therapy Disch Summary - Patient Concerns List Patient Concerns: is concerned regarding change in communication, cognition and ADL completion. She has a difficult time hearing him with his newly aquired dysarthria - Living & Support Living Situation/Support System: is very supportive however she does not have much additional support for herself or Jack. - Hearing Evaluation Hearing: Pass Hearing Comment: Requires increased volume in complex environments. - Vision Evaluation Vision: Glassess - Expressive Language (Area of Concern) Cues Needed: Time - Receptive Language (Area of Concern) Receptive Language: Basic - Written Expression Written Expression: Icon Recognition, Icon Duplication Written Expression Comment: Patient demonstrates functional icon duplication. - Cognition Orientation: Person, Place Attention: Simple Executive Functions: Problem Solving - Voice & Motor Speech Voice: Within Normal Limits Intelligibility Percentage at Evaluation: 85% to now familiar listener. Dysarthria: Mild Apraxia: N/A Aware of Difficulties: Yes (Jack recognizes he has difficulty with his memory and motor speech.) Voice & Motor Speech Comment: Jack maintains decreased vocal loudness and intelligibility without cues to maintain improved breath support through instruction on diaphragmatic breathing technique and use of sustained phonation on comfortable "oh" to faciliate improved coordination of breath support and speech for increased vocal loudness. Patient did complain of a sore throat on the initial attempt but complaint resolved with improved mechanics. Goals for Treatment - Goals Goals: 1. Patient will improve cognition, response to two step commands for ADL completion. 80% of attempts with moderate cues. With moderate cues patient is up to 80% accuracy. 2. Improve spontaneous communication for simple tasks to improve expression of wants/needs. 75% Of attempts with moderate cues. Patient demonstrates full sentences of relevant content when communication is direct. 3. Improve breath support for improved pacing for dyspharthric speech. 3-4 word phrases independently at 95% accuracy. Patient is able to utilize wrote speech ( days of the week, pledge of allegiance) to practice overarticulation and improved breath support for 4-7 word phrases with minimal cues. Goal not met, but making good progress toward attaining this goal. Plan for Treatment - Plan Plan for Treatment: Patient and have been educated regarding communication strategies for dysarthria as well as compensatory strategies for memory. Patient could benefit from education in the home environment regarding recent change in memory as well as continued training on motor speech techniques for remaining mild dysarthria. Patient was provided a tip sheet for dysarthria as well as a memory book template.
[2018-07-29] MEDS: IBUPROFEN 400 MG TABLET PO PRN (22:26)
[2018-07-29] MEDS: DONEPEZIL HCL 5 MG TABLET PO SCH (22:27)
[2018-07-30] MEDS: ASPIRIN 81 MG TABEC PO SCH (10:54)
[2018-07-30] MEDS: APIXABAN 5MG TABLET PO SCH ×2 (10:54→21:54)
[2018-07-30] MEDS: CHOLECALCIFEROL 1,000 UNIT TABLET PO SCH (10:55)
[2018-07-30] MEDS: TERAZOSIN HCL 1 MG CAPSULE PO SCH ×2 (10:55→21:56)
[2018-07-30] MEDS: ASCORBIC ACID 500 MG TAB PO SCH (10:55)
[2018-07-30] MEDS: SIMVASTATIN 20 MG TABLET PO SCH (10:55)
--- NOTE | 2018-07-30 14:42 | Occupational Therapy Tx Note ---
Occupational Therapy Tx Note - Treatment Note Tolerated: Good Total Time Spent With Patient: 50 (ther ex, ther activity) Occupational Therapy Treatment Note: Detail (S: Pt up at EOB with present. O: Reviewed use of adaptive equipment, pt reports he has a sock aid and long shoe horn. Pt donned slip on shoes with shoe horn Indly with mild difficulty due to decreased right hand coordination. Sit to stand and amb to rehab gym with 2 wheeled walker Indly. Pt completed right UE activity as follows: resistive clothespin pinch for right hand strengthening and coor, rice dig right hand x 8 minutes, green putty for cissp, pinch activity. Reeval performed: cissp right hand 51#, 48#, left hand 30#, 41#; coordination via 9 hole peg test - right 43 seconds, left 43 seconds; light touch equal farrukh hands, moderate difficulty with visual tracking and convergence continues with impaired right sided peripheral vision which is unchanged from initial testing. He is oriented to self, birthday, location but reports age as 83, month as June and year as 1980. Pt educated re: coordination activities for HEP and he verbalized learning. Pt amb back to room Ind with walker and was left with spouse. A: Right UE strength and coordination improved and functional for light self cares, cognition and visual perception continue to be impaired.) Occupational Therapy Problem List: Detail (1. Decreased right UE strength, coordination and sensation needed for safe and Ind ADLs/IADLs. 2. Decreased Ind with showering. 3. Decreased Ind with grooming/hygiene. 4. Decreased Ind with total body dressing. 5. Decreased endurance needed for functional Ind.) Occupational Therapy Goals: 1. Pt will demonstrated functional use of right UE for all ADL/IADL tasks. 2. Pt will be Ind with showering in standing or sitting. 3. Pt will be Ind with total body dressing. 4. Pt will demonstrate improve endurance needed for Ind self cares. 5. Pt will be Ind with grooming/ hygiene tasks. Prognosis: Good Occupational Therapy Plan: OT 2-4 times per week to address goals as above. Thank you for this referral.
--- NOTE | 2018-07-30 14:49 | Rehab Discharge Summary ---
Patient Information - Patient Information Diagnosis: Deconditioning r/t CVA Ordered Treatment: OT Evaluate and Treat Surgery: No Past Medical/Surgical Hx: PAST MEDICAL/SURGICAL HISTORY Past Surgical History cardiac stent elbow; R knee replacement; Prostate surgery PMH - Respiratory Hx Respiratory Disorders Yes Hx Asthma Yes: many yrs ago Hx Sleep Apnea Yes Hx of CPAP Yes PMH - Cardiovascular Hx Cardiovascular Disorders Yes Hx Abnormal EKG Yes Hx Cardiac Catheterization Yes: 04/29/15 rt groin Hx Congestive Heart Failure Yes: angina Hx Heart Attack Yes Hx Hypertension Yes Hx Irregular Heartbeat Yes: A-fib Hx Coronary Artery Disease Yes Hx Coronary Stent Yes: 2012 Hx Transient Ischemic Attacks Yes: 2-3 (TIA) Comment: high cholesterol PMH - Neuro Hx Neurological Disorders Yes Hx Cerebrovascular Accident Yes: 07/12/2018 Hx Seizures No Hx Transient Ischemic Attacks Yes: 2-3 (TIA) PMH - GI Hx Gastrointestinal Disorders Yes Comment: diarrhea PMH - Hx Genitourinary Disorders Yes Hx Kidney Stones Yes Hx Prostate Problems Yes PMH - Endocrine Hx Endocrine Disorders No Hx Diabetes No PMH - Musculoskeletal Hx Musculoskeletal Disorders Yes Hx Arthritis Yes: osteoarthritis rt knee PMH - Psych Hx Psychiatric Problems No PMH - Hematology/Oncology Hx Hematology/Oncology No Disorders Premorbid Status: Detail (Patient was ambulatory without device prior to CVA. Patient was completing yard work including mowing with a riding lawnmower and assisting with washing dishes and some house work. Spouse is responsible for meal prep and laundry tasks. Pt was Ind with driving.) Social History: Detail (The patient lives with spouse in a mobile home with 4 steps and one railing on the right side going up at entrance from the garage. The bathroom is equipped with a walk in shower stall and standard height toilet. He usually stands to shower. No grab bars are present in bathroom. 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 ), Place - Visual Perception Deficit (Right sided visual field deficits continue.) - ROM Within normal limits (Timmy UE AROM WNL) - Strength/Tone Not within normal limits (Timmy UE strength 4+/5 although right UE fatigues quickly.) - Coordination Deficit (Right hand coordination impaired. 9 hole peg test right 43 sec. left 43 sec.) - Bed Mobility Independent (Ind with supine to sit) - Transfers Independent (Ind with sit to stand from a variety of surfaces.) - Balance Balance Sitting: Good Balance Standing: Fair - Sensation Intact (Right UE sensation intact for light touch, stereognosis and proprioception) - Gait Detail (Pt ambulating with 2 wheeled walker Indly.) - ADL's/IADL's Detail (Pt able to perform showering in sitting and standing and total body dressing with adaptive equipment Indly. He does have mild difficulty with right hand activities such as buttoning left sleeve button but he is able to complete Indly with extra time. Pt is Ind with shaving using electric razor and oral hygiene.) Therapy Assessment - Therapy Assessment Detail (Pt is Ind with self cares, he has a HEP to include right hand theraputty and coordination tasks as well as visual perceptual exercises. Pt does have a commode chair and shower seat for use after discharge.) Problem List - Problem List Physical Therapy Problem List: Detail (1) Bilateral knee pain 2) Decreased R LE strength and decreased coordination 3) Impaired ambulation secondary to CVA 4) Decreased balance in standing) Occupational Therapy Problem List: Detail (1. Decreased right UE strength, coordination and sensation needed for safe and Ind ADLs/IADLs. 2. Decreased Ind with showering. 3. Decreased Ind with grooming/hygiene. 4. Decreased Ind with total body dressing. 5. Decreased endurance needed for functional Ind.) Goals - Goals Physical Therapy Goals: 1) Assess the patient's bed mobilty and balance using an objective balance scale. (Goal Met). 2) The patient will be independent with all transfers. 3) The patient will be independent with bed mobility (Goal Met). 4) The patient will be independent and safe with ambulation with appropriate assistive device community distances. 5) The patient will ambulate on stairs with supervision for safety.(Goal Met) Occupational Therapy Goals: Goals Met: 1. Pt will demonstrated functional use of right UE for all ADL/IADL tasks. 2. Pt will be Ind with showering in standing or sitting. 3. Pt will be Ind with total body dressing. 4. Pt will demonstrate improve endurance needed for Ind self cares. 5. Pt will be Ind with grooming/hygiene tasks. Prognosis - Prognosis Good Plan - Plan Physical Therapy Plan: 1-2 times a day M-F for gait training, LE strengthening exercises, balance and coordination exercises, transfer training and bed mobility. Occupational Therapy Plan: Pt discharging home on 07/31/18 with home OT/PT/SECURITY CONTROL ASSESSOR. Recommend follow up with neuro-opthamologist to evaluate visual perceptual deficits.
--- NOTE | 2018-07-30 15:52 | Physical Therapy Tx Note ---
Physical Therapy Tx Note - Treatment Note Tolerated: Good Total Time Spent With Patient: 30 Physical Therapy Tx Note: Detail (The patient was up in chair when PT arrived with no complaints. The patient ambulated on stairs and curb step with supervision for safety only using proper technique. The patient's balance was retested using Tinetti Assessment Tool and was 22/28 which is moderate risk for falls. Initially the patient's score was 16/28 (high risk for falls). The patient's LE strength was retested R LE strength was generally 4/5 throughout. The patient exhibits increased strength and improved balance. Patient's HEP was updated to include ankle circles.) Physical Therapy Problem List: Detail (1) Bilateral knee pain 2) Decreased R LE strength and decreased coordination 3) Impaired ambulation secondary to CVA 4) Decreased balance in standing) Physical Therapy Goals: 1) Assess the patient's bed mobilty and balance using an objective balance scale. (Goal Met). 2) The patient will be independent with all transfers. 3) The patient will be independent with bed mobility (Goal Met). 4) The patient will be independent and safe with ambulation with appropriate assistive device community distances. 5) The patient will ambulate on stairs with supervision for safety.(Goal Met) Physical Therapy Plan: Patient is discharging tomorrow and is to receive Home PT.
[2018-07-30] MEDS: DONEPEZIL HCL 5 MG TABLET PO SCH (21:54)
[2018-07-31] MEDS: DRY EYES OPTH PRN (07:28)
[2018-07-31] MEDS: ASPIRIN 81 MG TABEC PO SCH (10:06)
[2018-07-31] MEDS: APIXABAN 5MG TABLET PO SCH (10:07)
[2018-07-31] MEDS: ASCORBIC ACID 500 MG TAB PO SCH (10:07)
[2018-07-31] MEDS: TERAZOSIN HCL 1 MG CAPSULE PO SCH (10:07)
[2018-07-31] MEDS: CHOLECALCIFEROL 1,000 UNIT TABLET PO SCH (10:08)
[2018-07-31] MEDS: SIMVASTATIN 20 MG TABLET PO SCH (10:08)
--- NOTE | 2018-07-31 11:21 | Discharge Summary ---
Providers Discharge Summary Date: 07/31/18 Date of admission: 07/15/18 13:50 Expected Date of Discharge: 07/31/18 Attending physician: MEMO ARMIJO Primary care physician: MEMO ARMIJO Physical Exam - Vital Signs Vital Signs: Vital Signs - Last 24 Hrs Temp Pulse Resp BP Pulse Ox 07/31/18 08:40 97.7 F 66 18 150/79 97 07/30/18 20:00 97.5 F L 51 L 16 138/67 98 - General General Appearance: Alert, Cooperative, No acute distress Limitations: Altered mental status - Head Head exam: Atraumatic - Eye Eye exam: Normal appearance - ENT ENT exam: Normal exam, Mucous membranes moist Mouth exam: Other (right sided slight droop, no drooling) - Respiratory Respiratory exam: Normal lung sounds bilaterally - Cardiovascular Cardiovascular Exam: Normal rhythm, Normal heart sounds Peripheral Pulses: 2+: Radial (R), Radial (L), Dorsalis Pedis (R), Dorsalis Pedis (L) - GI/Abdominal GI/Abdominal exam: Soft, Normal bowel sounds - Rectal Rectal exam: Deferred - exam: Deferred - Extremities Extremities exam: Normal inspection - Neurological Neurological exam: Abnormal gait, Altered (confused), Other (motor right: 3/5, left: 5/5 ) - Psychiatric Psychiatric exam: Normal affect, Normal mood - Skin Skin exam: Dry, Warm Hospitalization - Hospitalization Admission Diagnosis: Deconditioning r/t CVA - Problem List (1) Physical deconditioning Current Visit: Yes Status: Acute Base Code: R53.81 - OTHER MALAISE Comment : 07/31/18 -CVA 07/12/18 -Swing Bed placement, discharging today to home health with PT and ST -Pt also hiring private duty assistants in addition to home health -pt f/u with PCP and neurology -see PT notes for progress -improving right-sided weakness with slight facial droop 07/24/18: Recent CVA 07/12/18 - CT head shows new left frontal lacunar infart - Improving right-sided weakness with facial droop with daily PT/OT. (2) Expressive aphasia Current Visit: Yes Status: Acute Base Code: R47.01 - APHASIA Comment: 07/31 -pt has GAS ENGINEER with home health, d/c today 07/24/18: CT head shows new left frontal lacunar infart 07/12 - GAS ENGINEER to evaluate weekly. (3) Dementia Current Visit: Yes Status: Acute Base Code: F03.90 - UNSPECIFIED DEMENTIA WITHOUT BEHAVIORAL DISTURBANCE Comment: 07/31/18 -continue Donepezil 10mg PO QHS -home health and private duty to assist with care 07/24/18: -Patient has demetia per baseline, assisting at bedside -Continue Donepezil 10mg PO QHS (4) Stroke Current Visit: No Status: Acute Discharge Diagnosis: Laterality of affected vessel: left Base Code: I63.9 - CEREBRAL INFARCTION, UNSPECIFIED Comment: 07/31/18: - S/P left frontal lucunar infarct. - Right sided motor deficits, expressive aphasia. (5) Chronic a-fib Current Visit: Yes Status: Acute Base Code: I48.2 - CHRONIC ATRIAL FIBRILLATION Comment: 07/31/18: -Continue Eliquis 5mg BID (6) Full code status Current Visit: Yes Status: Acute Base Code: Z78.9 - OTHER SPECIFIED HEALTH STATUS Comment: 07/31/18: -Patient is a full code this admission (7) DVT prophylaxis Current Visit: Yes Status: Acute Base Code: [id number] - Comment: 07/31/18: -High risk due to hospitalization and recent CVA -Continue Eliquis 5mg BID -Encourage ambulation with PT/OT - Hospitalization Course Disposition: Home Health Service Reason For Discharge/Transfer: Medical Stability Hospital Course: 82 year old male patient presented to [facility] for the swingbed program. Patient was admitted to [facility] 07/12/18 for a CVA. Patient was noted to suffer from expressive aphasia, right-sided facial droop and drooling, and noted increased gait instability. Patient has had TIAs in the past, with the last episode 10 years ago and no resulting neuro deficits. CT head showed a new left frontal lucunar infarct. ECHO showed LVEF of 55-60T. MRI findings of acute lacunar infarct involving the left frontal lobe and chronic small vessel ischemic changes. Neurology conult recommended continued statin therapy for secondary prevention and follow-up with Dr. Gasca (Neurology) in 90 days. Past medical history includes: HTN, chronic A-fib (Eliquis), BPH, dementia, hyperlipidemia Labs 07/15/18: Hgb 14.4 Platelets 129 CR 1.05 K 3.9 PCP: Dr. Armijo 07/15/18: Patient sitting up in chair with at bedside. Patient oriented to self, place, and situation, disoriented to year. Patient has significant right- sided weakness with right-sided facial droop as well. Patient reports no pain at this time. Abnormal Labs: Abnormal Lab Results 07/21/18 07/21/18 Range/Units 06:10 06:10 Hgb 13.9 L (14.0-18.0) gm/dl Hct 41.2 L (42.0-52.0) % RDW 15.2 H (11.5-14.5) % MPV 11.1 H (7.4-10.4) fl Calcium 8.7 L (8.8-10.2) mg/dL Total Bilirubin 1.10 H (0.2-1.0) mg/dL Total Protein 6.3 L (6.6-8.7) g/dL Albumin 3.4 L (4.0-5.0) g/dL Condition at Discharge: (2) Stable Discharge Medications - Discharge Medications Home Medications: Ambulatory Orders Cholecalciferol (Vitamin D3) [Vitamin D3] 1,000 unit PO QD cap 03/07/17 [Last Taken 1 Day Ago ~07/11/18] Ascorbic Acid 500 mg PO DAILY 07/15/18 [Last Taken Unknown] Aspirin [Aspirin EC] 81 mg PO DAILY 07/15/18 [Last Taken Unknown] Donepezil HCl 10 mg PO QHS 07/15/18 [Last Taken Unknown] Ascorbic Acid [Vitamin C] 500 mg PO DAILY tab 07/31/18 [Last Taken Unknown] Aspirin Enteric-Coated [Ecotrin (EC)] 81 mg PO DAILY tabec 07/31/18 [Last Taken Unknown] Donepezil HCl [Aricept] 10 mg PO QHS tablet 07/31/18 [Last Taken Unknown] Ibuprofen [Motrin] 800 mg PO Q8H PRN tablet 07/31/18 [Last Taken Unknown] Loperamide HCl [Immodium] 2 mg PO Q4H PRN capsule 07/31/18 [Last Taken Unknown] Nystatin [Nystop] 15 gm TP ASDIR PRN powder 07/31/18 [Last Taken Unknown] Simvastatin [Zocor] 40 mg PO DAILY tablet 07/31/18 [Last Taken Unknown] Terazosin HCl [Hytrin] 2 mg PO BID capsule 07/31/18 [Last Taken Unknown] Zinc Oxide [Desitin] 10 gm TOP ASDIR PRN tube 07/31/18 [Last Taken Unknown] Discharge Plan - Discharge Instructions Activity at Discharge: Ambulate Only With Your Walker, As Per Physical Therapy Diet at Discharge: Advance to Usual Diet Additional Instructions: -[facility] will see you at home to provide therapy and nursing services. They can be reached 12/11 at [phone]. -Continued memory and motor speech training recommended at home with Speech Therapy -Physical and Occupational Therapy evaluations recommended in home environment for safety and modifications -Use your walker while ambulating -Use shower chair while showering Appointments have been scheduled for you as follows: -Dr. Gasca at [facility] Neurology on SaturdayOctober 27 at 11:30AM. Arrive at 11:00 AM and please bring General Neurology Services Patient Questionnaire with you. Office is location at [address] [place] [address]. [place] [address]. Phone # is [phone]. Call [facility] one month before this appointment to schedule transportation -Dr. Armijo at [facility], August 14 at 1:40PM. -[facility] SaturdaySeptember 10, 2:30. Quality Measures - Quality Measures Quality Measures: Atrial Fibrillation & Atrial Flutter: Chronic Anticoagulation Therapy, Advance Directives, Documentation of Current Medications in Medical Record, Elder Maltreatment Screen and Follow-Up Plan, Screening for High Blood Pressure and F/U Documented - Current Medications Quality Measure: Measure #130: Documentation of Current Medications Documentation of Current Medications: <Current Medications Documented/Reviewed> [G8427] - Blood Pressure Screening Quality Measure: Screening for High Blood Pressure and Follow-Up Documented Does Patient Have Any of the Following: Active Dx of HTN Blood Pressure Classification: Hypertensive Reading Systolic Measurement: 164 Diastolic Measurement: 94 Screening for High Blood Pressure: Patient Exclusion, Hx of HTN [G9744] - Atrial Fibrillation and Atrial Flutter Quality Measure: Atrial Fibrillation & Atrial Flutter: Chronic Anticoagulation Therapy Does Patient Have Any of the Following: No CHADS2 Risk Stratification: Prior Stroke/TIA or Systemic Embolism, Age 75 or Greater, Hypertension, Heart Failure or Impaired LVSF Risk Stratification Summary: One or more high risk factors OR more than one moderate risk factor exists. [F5131] Anticoagulation Therapy: <Oral anticoagulant Prescribed> [M0214] - Advance Directives Quality Measure: Measure #47: Care Plan Advance Directives Established: No Advance Directives Information Provided To Patient: No Advance Directives on File: No (Informational pamphlet given to patient.) Living Will: No Power of Security Representative: Yes Power of Security Representative Name: kanika awad Advance Care Planning: <Care Plan/Decision Maker Documented; Discussed & Documented> [[id number]] - Elder Abuse Suspicion Index Screening: Elder Abuse Suspicion Index Screening Rely on people for bathing, dressing, shopping, banking, etc: No Prevented from getting food, clothes, medication, etc: No Made to feel shamed or threatened by someone: No Forced to sign papers or use money against will: No Feel afraid, touched in ways not wanted or hurt physically: No Poor eye contact, withdrawn, malnourished, cuts or bruises: No Screening Result: Negative result EASI Reference Information: Nimesh ANNA, Lacie C, Juan D, Sarah Gomes.Development and validation of a tool to assist physicians identification of elder abuse: The Elder Abuse Suspicion Index (EASI ). Journal of Elder Abuse and Neglect, 2008; 20 (3): 276-300. - Elder Maltreatment Screen Quality Measures: Elder Maltreatment Screen and Follow-Up Plan Elder Maltreatment Screen: <Negative, No Follow-Up Plan Required> [G6229]
--- NOTE | 2018-08-01 10:03 | Rehab Discharge Summary ---
Patient Information - Patient Information Diagnosis: Deconditioning r/t CVA Ordered Treatment: PT Evaluate and Treat Surgery: No Past Medical/Surgical Hx: PAST MEDICAL/SURGICAL HISTORY Past Surgical History cardiac stent elbow; R knee replacement; Prostate surgery PMH - Respiratory Hx Respiratory Disorders Yes Hx Asthma Yes: many yrs ago Hx Sleep Apnea Yes Hx of CPAP Yes PMH - Cardiovascular Hx Cardiovascular Disorders Yes Hx Abnormal EKG Yes Hx Cardiac Catheterization Yes: 04/29/15 rt groin Hx Congestive Heart Failure Yes: angina Hx Heart Attack Yes Hx Hypertension Yes Hx Irregular Heartbeat Yes: A-fib Hx Coronary Artery Disease Yes Hx Coronary Stent Yes: 2012 Hx Transient Ischemic Attacks Yes: 2-3 (TIA) Comment: high cholesterol PMH - Neuro Hx Neurological Disorders Yes Hx Cerebrovascular Accident Yes: 07/12/2018 Hx Seizures No Hx Transient Ischemic Attacks Yes: 2-3 (TIA) PMH - GI Hx Gastrointestinal Disorders Yes Comment: diarrhea PMH - Hx Genitourinary Disorders Yes Hx Kidney Stones Yes Hx Prostate Problems Yes PMH - Endocrine Hx Endocrine Disorders No Hx Diabetes No PMH - Musculoskeletal Hx Musculoskeletal Disorders Yes Hx Arthritis Yes: osteoarthritis rt knee PMH - Psych Hx Psychiatric Problems No PMH - Hematology/Oncology Hx Hematology/Oncology No Disorders Premorbid Status: Detail (Patient was ambulatory without device prior to CVA. Patient was completing yard work including mowing with a riding lawnmower and assisting with washing dishes and some house work. Spouse is responsible for meal prep and laundry tasks. Pt was Ind with driving.) Social History: Detail (The patient lives with spouse in a mobile home with 4 steps and one railing on the right side going up at entrance from the garage. The bathroom is equipped with a walk in shower stall and standard height toilet. He usually stands to shower. No grab bars are present in bathroom. 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 The patient's R LE strengthe improved 1/3 muscle grade in most muscle groups.) - Bed Mobility Independent (The patient was independent with supine to and from sit transfer.) - Transfers Independent (The patient was independent with sit to and from stand from higher surfaces. The patient required use of grab bar or walker with sit to stand from low toilet. The patient was independent with shower transfer to shower chair. The patient was independent with car transfers.) - Balance Balance Sitting: Good Balance Standing: Fair (The patient's balance using the [employer]etti Assessment Tool was 22/28 which is in the moderate risk for falling category. Initially his balance was scored as 16/28 which is in the high risk for falling category.) - Gait Detail (The patient ambulated independently with two wheeled walker community distances. The patient was able to ambulate on stairs with use of railing and supervision for safety only. The patient was able to ambulate on curb step with supervision for safety and occasional verbal cues for proper technique. The patient was able to ambulate without assistive device with CG/ supervision for safety only. The patient continued to ambulate with shuffling steps but floor clearance was higher then initially.) Therapy Assessment - Therapy Assessment Detail (The patient exhibited improved balance, increased LE strength and improved overall mobility. The patient is to receive Home PT to continue to improve patient's balance and LE strength and progress ambulation to without assistive device.) Patient Education - Patient Education Teaching Topic: Exercise/Activity (The patient was independent with HEP including LE strengthening and coordination and facial exercises.) Response: Return Demonstration Teaching Method: Demonstration, Handout Teaching Recipient: Patient Barriers To Learning: Age Related, Cognitive/Verbal, Visual Problem List - Problem List Physical Therapy Problem List: Detail (1) Bilateral knee pain 2) Decreased R LE strength and decreased coordination 3) Impaired ambulation secondary to CVA 4) Decreased balance in standing) Occupational Therapy Problem List: Detail (1. Decreased right UE strength, coordination and sensation needed for safe and Ind ADLs/IADLs. 2. Decreased Ind with showering. 3. Decreased Ind with grooming/hygiene. 4. Decreased Ind with total body dressing. 5. Decreased endurance needed for functional Ind.) Goals - Goals Physical Therapy Goals: 1) Assess the patient's bed mobilty and balance using an objective balance scale. (Goal Met). 2) The patient will be independent with all transfers (Goal Met). 3) The patient will be independent with bed mobility (Goal Met). 4) The patient will be independent and safe with ambulation with appropriate assistive device community distances (Goal Met). 5 ) The patient will ambulate on stairs with supervision for safety.(Goal Met) Occupational Therapy Goals: Goals Met: 1. Pt will demonstrated functional use of right UE for all ADL/IADL tasks. 2. Pt will be Ind with showering in standing or sitting. 3. Pt will be Ind with total body dressing. 4. Pt will demonstrate improve endurance needed for Ind self cares. 5. Pt will be Ind with grooming/hygiene tasks. Plan - Plan Physical Therapy Plan: Patient discharged to home and is receiving Home Rehab services. Occupational Therapy Plan: Pt discharging home on 07/31/18 with home OT/PT/MANAGER INTERVENTIONAL. Recommend follow up with neuro-opthamologist to evaluate visual perceptual deficits.
== END 2018-07-31 11:50 | disposition home or self-care (01) | DRG 66 ==
LOC: MEDSURG 13:50
PROVIDERS: ADMIT Internal Medicine; ATTEND Internal Medicine
DX: I63.9 Cerebral infarction, unspecified (principal); R47.01 Aphasia; I48.2 Chronic atrial fibrillation; Z79.01 Long term (current) use of anticoagulants; F03.90 Unspecified dementia, unspecified severity, without behavioral disturbance, psychotic disturbance, mood disturbance, and anxiety; N40.0 Benign prostatic hyperplasia without lower urinary tract symptoms; E78.5 Hyperlipidemia, unspecified; Z95.5 Presence of coronary angioplasty implant and graft
CPT/HCPCS: 80053; 85025; 92507; 97110; 97112; 97116; 97530; 97532; 97535; 99306; 99309; 99316